=== PATIENT | female | born 1985 | race Caucasian/White ===

== ENCOUNTER 2016-07-14 15:18 | Observation (INO) | payer MEDICAID ==
[2016-07-14 16:00] VITALS: PULSE 99
[2016-07-14] MEDS ORDERED: Sodium Chloride 0.9% 1000 ML 1,000 ML IV STA (16:43)
[2016-07-14] MEDS ORDERED: Lactated Ringers 1,000 ML IV SCH (17:00)
[2016-07-14 17:31] LABS: BASOPHIL % 0.3 % (0.0-0.4); Eosinophil % 2.1 % (0.00-5.0); Granulocytes % 68.8 % (36.0-66.0); Lymphocytes % 20.7 % (24.0-44.0); Mean Cell Volume 96.8 fl (78-100); Mean Platelet Volume 11.7 fl (6-9.5); Monocytes % 8.1 % (0.0-12.0); Platelet Count 252 K/mm3 (150-450); Red Blood Count 3.39 M/mm3 (4.1-5.4); Red Cell Distribution Width 13.1 % (11.5-14.0); White Blood Count 6.6 K/mm3 (4.0-10.5)
[2016-07-14 17:53] LABS: Mean Corpuscular Hemoglobin 30.9 pg (26-32)
[2016-07-14 18:14] LABS: ALBUMIN 2.1 g/dL (3.4-5.0); ALKALINE PHOSPHATASE 135 U/L (46-116); ANION GAP 10.4 MEQ/L (5-15); BILIRUBIN,TOTAL 0.3 mg/dL (0.2-1.0); BLOOD UREA NITROGEN 4 mg/dL (9-20); CHLORIDE 107 mEq/L (98-107); Carbon Dioxide 24.2 mEq/L (21-32); Glucose 95 MG/DL (70-110); Potassium 3.8 mEq/L (3.5-5.1); SGOT/AST 34 U/L (15-37); SGPT/ALT 37 U/L (12-78); SODIUM 138 mEq/L (136-145); Total Protein 5.8 gm/dL (6.4-8.2)
[2016-07-14] MEDS ORDERED: Norco 10/325 MG Tablet PO PRN (18:22)
[2016-07-14 19:20] LABS: COMPLETE URINE MICROSCOPIC? NO; Collection Type CLEAN CATCH
[2016-07-14 19:52] VITALS: BP 138/78; O2SAT 99
--- NOTE | 2016-07-15 08:34 | XRAY ---
Indication: Fall. High risk . 2-dimensional OB ultrasound performed. Comparison: January 10, 2016 Again there is a single viable intrauterine . Normal four-chamber heart with heart rate 131 bpm. Normal three-vessel cord and cord insertion. Visualized stomach, kidneys, and bladder are unremarkable. Placenta is anterior without abruption/previa. Cervical length measures 3.5 cm. BPD measures 8.85 cm corresponding to 35 weeks 5 days. HC measures 32.63 cm corresponding to 37 weeks 0 days. AC measures 33.67 cm corresponding to 37 weeks 4 days. FL measures 7.03 cm corresponding to 36 weeks 0 days. KALIN is 15.2 cm. Impression: Again single viable intrauterine with mean gestational age 36 weeks 4 days. There has been progression in the with the fetus measuring 8 days smaller since the previous exam. No acute findings. Comment: Preliminary report was given.
== END 2016-07-14 19:50 | disposition home or self-care (01) ==
LOC: OB 15:18
PROVIDERS: ADMIT Family Medicine; ATTEND Family Medicine
DX: O21.2 Late vomiting of pregnancy (principal); W01.198A Fall on same level from slipping, tripping and stumbling with subsequent striking against other object, initial encounter; M54.5 Low back pain; O24.419 Gestational diabetes mellitus in pregnancy, unspecified control; Z3A.38 38 weeks gestation of pregnancy; E86.0 Dehydration; B19.20 Unspecified viral hepatitis C without hepatic coma
CPT/HCPCS: 36415; 76805; 80053; 80307; 81002; 85025; G0378

== ENCOUNTER 2016-07-19 16:36 | Observation (INO) | payer MEDICAID ==
[2016-07-19 16:44] VITALS: BP 113/59; PULSE 94
[2016-07-19] MEDS ORDERED: TYLENOL 325 MG PO PRN (18:03)
[2016-07-19] MEDS ORDERED: TYLENOL 325 MG ONE (18:05)
[2016-07-19 18:08] LABS: COMPLETE URINE MICROSCOPIC? NO; Collection Type CLEAN CATCH
== END 2016-07-19 19:35 | disposition home or self-care (01) ==
LOC: UNDOADMOB 16:36 → OB 16:36 → UNDODISOB 19:35
PROVIDERS: ADMIT Family Medicine; ATTEND Family Medicine
DX: Z34.83 Encounter for supervision of other normal pregnancy, third trimester (principal)
CPT/HCPCS: 59025; 80307; 81002; G0378

== ENCOUNTER 2018-02-27 21:22 | Emergency (ER) | payer OTHER ==
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
[2018-02-27 22:40] VITALS: BP 134/88; PULSE 88; O2SAT 100
[2018-02-27] MEDS ORDERED: KEFLEX 500 MG PO ONE (22:45)
[2018-02-27] MEDS ORDERED: KEFLEX 500 MG ONE (22:51)
--- NOTE | 2018-02-28 08:37 | XRAY ---
Indication: Foreign body needle. Comparison: None 2 views of the left elbow demonstrates 7 mm metallic wire/foreign body in the anterior subcutaneous soft tissues. No other bony, articular, or soft tissue abnormalities.
== END 2018-02-27 22:58 | disposition home or self-care (01) ==
LOC: ED 21:22
DX: M79.5 Residual foreign body in soft tissue (principal)
CPT/HCPCS: 73070; 99283; A9270-GY

== ENCOUNTER 2018-03-06 08:31 | Emergency (ER) | payer OTHER ==
[2018-03-06] MEDS ORDERED: TYLENOL 325 MG PO ONE (08:45)
[2018-03-06 08:52] VITALS: BP 119/70; PULSE 92; O2SAT 100
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
[2018-03-06] MEDS ORDERED: TYLENOL 325 MG ONE (08:56)
[2018-03-06 09:15] LABS: BASOPHIL % 0.4 % (0.0-0.4); Basophil (Absolute #) 0.02 (0-0.4); Eosinophil % 5.3 % (0.00-5.0); Eosinophil (Absolute #) 0.27 (0-0.5); Granulocyte Absolute (ANC) 2.93 (1.4-6.9); Granulocytes % 57.8 % (36.0-66.0); Hematocrit 41.8 % (35-47); Hemoglobin 14.3 gm/dl (12.0-16.0); Lymphocyte (Absolute #) 1.38 (1.0-4.6); Lymphocytes % 27.2 % (24.0-44.0); Mean Cell Volume 96.5 fl (78-100); Mean Corpuscular Hgb Concent. 34.2 g/dl (32-36); Mean Platelet Volume 10.7 fl (6-9.5); Monocyte (Absolute #) 0.47 (0.0-1.3); Monocytes % 9.3 % (0.0-12.0); Platelet Count 241 K/mm3 (150-450); Red Blood Count 4.33 M/mm3 (4.1-5.4); Red Cell Distribution Width 12.8 % (11.5-14.0); White Blood Count 5.1 K/mm3 (4.0-10.5)
[2018-03-06 09:22] LABS: Appearance CLEAR (CLEAR); Bilirubin NEGATIVE (NEGATIVE); Glucose NEGATIVE (NEGATIVE); Ketones NEGATIVE (NEGATIVE); Leukocyte Esterase TRACE (NEGATIVE); Nitrite NEGATIVE (NEGATIVE); Protein,Urine Dip NEGATIVE (Negative); Specific Gravity 1.015 (1.005-1.025); Urobilinogen NORMAL mg/dL (0-1)
[2018-03-06 09:23] LABS: Blood NEGATIVE Ery/ul (0-5)
[2018-03-06 09:34] LABS: ALKALINE PHOSPHATASE 43 U/L (38-126); AMYLASE 89 U/L (30-110); ANION GAP 10.8 MEQ/L (5-15); BLOOD UREA NITROGEN 16 mg/dL (7-17); CHLORIDE 108 mmol/L (98-107); Calcium 9.3 mg/dL (8.4-10.2); Carbon Dioxide 25 mmol/L (22-30); Creatinine 1 0.55 mg/dL (0.52-1.04); Glucose 93 mg/dL (74-106); LIPASE 229 U/L (23-300); Potassium 4.3 mmol/L (3.5-5.1); SGOT/AST 161 U/L (14-36); SGPT/ALT 237 U/L (0-35); SODIUM 139 mmol/L (137-145); Total Protein 7.2 g/dL (6.3-8.2)
[2018-03-06 09:53] LABS: Amphetamine,Urine NEGATIVE (NEGATIVE); Barbiturate,Urine NEGATIVE (NEGATIVE); Benzodiazepine,Urine NEGATIVE (NEGATIVE); Cocaine,Urine NEGATIVE (NEGATIVE); Methadone,Urine NEGATIVE (NEGATIVE); Opiate,Urine NEGATIVE (NEGATIVE); PCP,Urine NEGATIVE (NEGATIVE); THC,Urine NEGATIVE (NEGATIVE)
[2018-03-06 09:56] LABS: Epithelial Cells RARE /HPF (FEW); WBC 0-2 /HPF (0-5)
== END 2018-03-06 10:28 | disposition home or self-care (01) ==
LOC: ED 08:31
DX: R10.9 Unspecified abdominal pain (principal); S00.03XA Contusion of scalp, initial encounter; R51 Headache; M54.9 Dorsalgia, unspecified; Y09 Assault by unspecified means
CPT/HCPCS: 36415; 80053; 80307; 81000; 82150; 83690; 84702; 84703; 85025; 99283; A9270-GY

== ENCOUNTER 2018-03-17 08:37 | Day surgery (SDC) | payer OTHER ==
--- NOTE | 2018-03-17 07:52 | HP ---
DATE OF SURGERY: 03/17/2018 ADMISSION DIAGNOSIS: Foreign body left arm. ANTICIPATED PROCEDURE: Excision. HISTORY OF PRESENT ILLNESS: The patient has a broken off needle in the arm. PAST MEDICAL HISTORY: ALLERGIES: NONE. MEDICATIONS: Keflex, Metformin. PAST SURGICAL HISTORY: section x2. Back surgery. SOCIAL HISTORY: Negative. FAMILY HISTORY: Negative. REVIEW OF SYSTEMS: Diabetes. PHYSICAL EXAMINATION: VITAL SIGNS: Normal. CHEST: Clear. COR: Regular. IMPRESSION: Needle left arm. PLAN: Excision.
[~2018-03-17 08:37] MED LIST: Lactated Ringers 1,000 ML IV ONE; XYLOCAINE 1% HCL 20 ML MDV ONE
[2018-03-17] MEDS ORDERED: DIPRIVAN 200 MG/20 ML IV ONE (08:38)
[2018-03-17] MEDS ORDERED: SUBLIMAZE 100 MCG/2 ML IV ONE (08:38)
[2018-03-17] MEDS ORDERED: Versed 2 MG/2 ML Injection IV ONE (08:38)
[2018-03-17 09:08] LABS: Amphetamine,Urine NEGATIVE (NEGATIVE); Barbiturate,Urine NEGATIVE (NEGATIVE); Benzodiazepine,Urine NEGATIVE (NEGATIVE); Cocaine,Urine NEGATIVE (NEGATIVE); Methadone,Urine NEGATIVE (NEGATIVE); Opiate,Urine NEGATIVE (NEGATIVE); PCP,Urine NEGATIVE (NEGATIVE); THC,Urine NEGATIVE (NEGATIVE)
[2018-03-17] MEDS: Lactated Ringers 1,000 ML IV SCH (09:21)
[2018-03-17] MEDS ORDERED: KEFZOL 1 GM ONE (10:59)
--- NOTE | 2018-03-17 12:11 | XRAY ---
Indication: Foreign body removal. Intraoperative fluoroscopy was provided for 34 seconds. Single digital spot image submitted for interpretation demonstrates wire material overlying the medial epicondyle presumed external. No other bony, articular, or soft tissue abnormalities. Correlate with intraoperative findings/report.
--- NOTE | 2018-03-17 12:11 | XRAY ---
34 seconds fluoroscopy time in surgery for foreign body removal.
[2018-03-17 12:24] VITALS: O2SAT 93
[2018-03-17 12:27] VITALS: BP 145/94; PULSE 88
--- NOTE | 2018-03-18 15:47 | OP ---
SURGERY DATE: 03/17/18 SURGERY TIME: 1050 PREOPERATIVE DIAGNOSIS: 1. PROBABLE FOREIGN BODY, NEEDLE, ELBOW. POSTOPERATIVE DIAGNOSIS: 1. NEGATIVE EXPLORATION WITH SOME GRANULATION TISSUE. PROCEDURE: 1. Exploration left elbow with removal of granulation tissue and closure. SURGEON: Finn Hernandez M.D. ANESTHESIA: General. COMPLICATIONS: None. CONDITION: Stable. INDICATION: Patient requiring exploration of poorly healing area of the elbow. She thinks a needle is present. OPERATIVE PROCEDURE: Taken to surgery. Prior to making excision, it was fluoro'd and nothing absolute was seen. It was then opened. There was some granulation tissue. This was removed. Again, it was refluoro'd, nothing suggested. An intraoperative needle was showing up nicely on the fluoro image. Patient tolerated the procedure satisfactory.
== END 2018-03-17 12:20 | disposition home or self-care (01) ==
LOC: SDC 08:37
PROVIDERS: ATTEND Surgery
PROC: 0JJV0ZZ Inspection of Upper Extremity Subcutaneous Tissue and Fascia, Open Approach (ICD-10-PCS; principal; 2018-03-17)
DX: L92.3 Foreign body granuloma of the skin and subcutaneous tissue (principal); E11.9 Type 2 diabetes mellitus without complications; Z79.4 Long term (current) use of insulin
CPT/HCPCS: 73090; 76000; 80307; 82962; 84703; 94250; J0690; J2250; J2704; J3010

== ENCOUNTER 2018-03-23 01:47 | Emergency (ER) | payer OTHER ==
--- NOTE | 2018-03-23 02:26 | ERPHSYRPT ---
- History of Present Illness Source: patient, EMS Exam Limitations: no limitations Patient Subjective Stated Complaint: chest pain on right side Triage Nursing Assessment: Pt c/o of right sided chest pain that she feels is related to her emotional state at this time, very tearful, Meth 2 days ago, drank whiskey tonite, Vitals wnl, pulses normal, hx of NC, miscarriage this past month Timing/Duration: today Severity of Symptoms-Max: moderate Severity of Symptoms-Current: moderate Context related to: significant other, living circumstances Suicidal thoughts: other (thoughts of overdosing) Associated Symptoms: depressed, suicidal ideation Previous symptoms: same symptoms as today Hx Tetanus, Diphtheria Vaccination/Date Given: Yes Hx Influenza Vaccination/Date Given: No Hx Pneumococcal Vaccination/Date Given: No <JAMI CHO - Last Filed: 03/23/18 07:07> <SHAZIA DEAN - Last Filed: 03/23/18 11:39> - History of Present Illness Time Seen by Provider: 03/23/18 02:15 Physician History: 32 y/o white female presents via ems with severe depression for a week. pt states she will harm herself if she is alone any longer so she called ems. she uses methamphetamines often. she was drinking whiskey this am. she was brought in by ems. pt also c/o left side cp. no n/v/d. pt was but recently miscarried. (JAMI CHO) Allergies/Adverse Reactions: amoxicillin trihydrate [From Augmentin] Allergy (Intermediate, Verified 02:07) Vomiting cefuroxime Allergy (Intermediate, Verified 03/23/18 02:07) Vomiting Latex, Natural Rubber Allergy (Intermediate, Verified 03/23/18 02:07) Hives penicillin G Allergy (Intermediate, Verified 03/23/18 02:07) CHILDHOOD Penicillins Allergy (Intermediate, Verified 03/23/18 02:07) Rash potassium clavulanate [From Augmentin] Allergy (Intermediate, Verified 03/23/18 02:07) amoxicillin Allergy (Mild, Verified 03/23/18 02:07) Rash clindamycin Allergy (Mild, Verified 03/23/18 02:07) Vomiting contrast dye Allergy (Severe, Uncoded 07/14/16 15:40) Shortness of Breath vomiting Home Medications: Aspirin EC 81 mg [Ecotrin 81 mg] 81 mg PO DAILY 03/11/18 [History] Metformin HCl 500 mg [Glucophage 500 MG] 500 mg PO BIDWM 03/11/18 [History ] Multivitamin [Daily Multiple Vitamin] 1 each PO DAILY 03/11/18 [History] [address] Fatty Acids/Fish Oil [Fish Oil 1,000 mg Capsule] 1,000 mg PO DAILY 03/11/18 [History] Vitamin E 400 Units [Vitamin E 400 UNIT SOFTGEL] 400 unit PO DAILY [History] - Past Medical History Pertinent Past Medical History: Yes Neurological History: No Pertinent History ENT History: No Pertinent History Cardiac History: Myocardial Infarction (NC) Respiratory History: Asthma Endocrine Medical History: Diabetes Type II Musculoskeletal History: No Pertinent History GI Medical History: No Pertinent History History: No Pertinent History Psycho-Social History: Anxiety, Bipolar, Depression, Other Female Reproductive Disorders: Endometriosis Other Medical History: elevated liver enzymes,. pt states agoraphobia and ptsd - Past Surgical History Past Surgical History: Yes Neuro Surgical History: No Pertinent History Cardiac: Cardiac Catheterization Respiratory: No Pertinent History Gastrointestinal: No Pertinent History Genitourinary: No Pertinent History Musculoskeletal: Orthopedic Surgery Female Surgical History: Dilation & Curettage, Section Other Surgical History: BACK surgery-implanted rods. d and c - Social History Smoking Status: Current every day smoker How long have you smoked: 27 years Exposure to second hand smoke: Yes Drug Use: marijuana, methamphetamines Patient Lives Alone: Yes Significant Family History: no pertinent family hx - Female History Hx Last Menstrual Period: Hx Now: No <JAMI CHO - Last Filed: 03/23/18 07:07> - Review of Systems Constitutional: No Symptoms Eyes: No Symptoms Ears, Nose, & Throat: No Symptoms Respiratory: No Symptoms, No Cough, No Dyspnea, No Stridor, No Wheezing Cardiac: Chest Pain, No Palpitations, No Syncope Abdominal/Gastrointestinal: No Symptoms, No Abdominal Pain, No Nausea, No Vomiting, No Diarrhea Genitourinary Symptoms: No Symptoms, No Dysuria, No Frequency, No Hematuria Musculoskeletal: No Symptoms Skin: No Symptoms Neurological: No Symptoms, No Dizziness, No Lethargy, No Paralysis, No Sensory Changes, No Speech Changes, No Tics, No Tremors, No Vertigo Psychological: No Symptoms, Alcohol Abuse, Drug Abuse, Depression, Suicidal Ideations, No Homicidal Ideations, No Emotional Lability Endocrine: No Symptoms Hematologic/Lymphatic: No Symptoms Immunological/Allergic: No Symptoms All Other Systems: Reviewed and Negative <JAMI CHO - Last Filed: 03/23/18 07:07> - Physical Exam General Appearance: mild distress, alert, anxiety Eyes, Ears, Nose, Throat Exam: normal ENT inspection, TMs normal, moist mucous membranes Neck Exam: normal inspection, non-tender, full range of motion, No supple Respiratory Exam: normal breath sounds, chest tenderness, lungs clear, airway intact, No respiratory distress, No diminished breath sounds, No accessory muscle use, No rhonchi, No wheezing, No stridor Cardiovascular Exam: regular rate/rhythm, normal heart sounds, normal peripheral pulses Gastrointestinal/Abdominal Exam: soft, normal bowel sounds, mass, No tenderness , No guarding, No rebound Extremities Exam: normal inspection, normal range of motion, evidence of injury Current Suicidality: other (afraid if she is alone she will overdose) Neurological Exam: alert, normal mood/affect, calm, 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 Appearance: disheveled, impaired insight, impaired recent memory Behavior/Eye Contact/Speech: alert & cooperative, cooperative, avoids eye contact Thoughts/Hallucinations: no apparent hallucination, No auditory hallucinations, No delusions, No visual hallucinations Skin Exam: normal color, warm, dry SpO2 Interpretation: normal SpO2: 98 Oxygen Delivery: Room Air <JAMI CHO - Last Filed: 03/23/18 07:07> <SHAZIA DEAN - Last Filed: 03/23/18 11:39> - Nursing Vital Signs Nursing Vital Signs: Initial Vital Signs Pulse Rate 100 H 03/23/18 01:49 Respiratory Rate 15 03/23/18 01:49 Blood Pressure 133/90 03/23/18 01:49 O2 Sat by Pulse Oximetry 98 03/23/18 01:49 Pain Scale Pain Intensity 0 - Course Nursing assessment & vital signs reviewed: Yes EKG Interpreted by Me: RATE (91), Sinus Rhythm, NORMAL AXIS, NORMAL INTERVALS, NORMAL QRS, NORMAL ST-T, Other (no change from ekg on 02/10/16) <JAMI CHO - Last Filed: 03/23/18 07:07> Ordered Tests: Active Orders 24 hr Category Date Time Status EKG-ER Only STAT Care 03/23/18 02:32 Active Psychiatric Consult STAT Cons 03/23/18 02:32 Active Regular Diet Diet 03/23/18 Lunch Active ACETAMINOPHEN Stat Lab 03/23/18 02:50 Completed CBC W DIFF Stat Lab 03/23/18 02:50 Completed CMP Stat Lab 03/23/18 02:50 Completed ETHYL ALCOHOL Stat Lab 03/23/18 02:50 Completed HCG,QUALITATIVE URINE Stat Lab 03/23/18 03:00 Completed LITHIUM Stat Lab 03/23/18 02:50 Completed Manual Differential NC Stat Lab 03/23/18 02:50 Completed SALICYLATE Stat Lab 03/23/18 02:50 Completed UA W/RFX UR CULTURE Stat Lab 03/23/18 03:00 Completed Urine Triage Profile Stat Lab 03/23/18 03:00 Completed Lab/Rad Data: Laboratory Result Diagrams 03/23/18 02:50 03/23/18 02:50 Laboratory Results 03/23/18 03/23/18 03/23/18 Range/Units 03:00 03:00 03:00 WBC (4.0-10.5) K/mm3 RBC (4.1-5.4) M/mm3 Hgb (12.0-16.0) gm/dl Hct (35-47) % MCV (78-100) fl MCH (26-32) pg MCHC (32-36) g/dl RDW (11.5-14.0) % Plt Count (150-450) K/mm3 MPV (6-9.5) fl Absolute Granulocytes (1.4-6.9) Segmented Neutrophils (36.0-66.0) % Lymphocytes (Manual) (24-44) % Monocytes (Manual) (0.0-12.0) % Eosinophils (Manual) (0.00-3.0) % Platelet Estimate (NORMAL) RBC Morphology Sodium (137-145) mmol/L Potassium (3.5-5.1) mmol/L Chloride (98-107) mmol/L Carbon Dioxide (22-30) mmol/L Anion Gap (5-15) MEQ/L BUN (7-17) mg/dL Creatinine (0.52-1.04) mg/dL Estimated GFR ML/MIN Glucose (74-106) mg/dL Calcium (8.4-10.2) mg/dL Total Bilirubin (0.2-1.3) mg/dL AST (14-36) U/L ALT (0-35) U/L Alkaline Phosphatase (38-126) U/L Serum Total Protein (6.3-8.2) g/dL Albumin (3.5-5.0) g/dL Ur Collection Type CLEAN CATCH Urine Color STRAW (YELLOW) Urine Appearance CLEAR (CLEAR) Urine pH 5.0 (5-6) Ur Specific [place] 1.025 (1.005-1.025) Urine Protein NEGATIVE (Negative) Urine Ketones NEGATIVE (NEGATIVE) Urine Blood NEGATIVE (0-5) Blu/ul Urine Nitrite NEGATIVE (NEGATIVE) Urine Bilirubin NEGATIVE (NEGATIVE) Urine Urobilinogen NORMAL (0-1) mg/dL Ur Leukocyte Esterase NEGATIVE (NEGATIVE) Urine Culture Reflexed NO (NO) Urine Glucose NEGATIVE (NEGATIVE) mg/dL Urine HCG, Qual NEGATIVE (Negative) Salicylates (2-20) mg/dL Urine Opiates Level NEGATIVE (NEGATIVE) Ur Methadone NEGATIVE (NEGATIVE) Acetaminophen (10-30) ug/ml Urine Barbiturates NEGATIVE (NEGATIVE) Ur Phencyclidine (PCP) NEGATIVE (NEGATIVE) Urine Amphetamine POSITIVE (NEGATIVE) U Benzodiazepine Level NEGATIVE (NEGATIVE) Antler (0.60-1.20) mmol/L Urine Cocaine NEGATIVE (NEGATIVE) Urine Marijuana (THC) NEGATIVE (NEGATIVE) Ethyl Alcohol (0-10) mg/dL 03/23/18 03/23/18 03/23/18 Range/Units 02:50 02:50 02:50 WBC 6.7 (4.0-10.5) K/mm3 RBC 4.50 (4.1-5.4) M/mm3 Hgb 15.0 (12.0-16.0) gm/dl Hct 43.1 (35-47) % MCV 95.8 (78-100) fl MCH 33.3 H (26-32) pg MCHC 34.8 (32-36) g/dl RDW 12.4 (11.5-14.0) % Plt Count 286 (150-450) K/mm3 MPV 10.6 H (6-9.5) fl Absolute Granulocytes 4.13 (1.4-6.9) Segmented Neutrophils 68 H (36.0-66.0) % Lymphocytes (Manual) 25 (24-44) % Monocytes (Manual) 5 (0.0-12.0) % Eosinophils (Manual) 2 (0.00-3.0) % Platelet Estimate NORMAL (NORMAL) RBC Morphology NORMAL Sodium 143 (137-145) mmol/L Potassium 3.9 (3.5-5.1) mmol/L Chloride 109 H (98-107) mmol/L Carbon Dioxide 25 (22-30) mmol/L Anion Gap 12.7 (5-15) MEQ/L BUN 18 H (7-17) mg/dL Creatinine 0.63 (0.52-1.04) mg/dL Estimated GFR > 60.0 ML/MIN Glucose 98 (74-106) mg/dL Calcium 9.6 (8.4-10.2) mg/dL Total Bilirubin 0.70 (0.2-1.3) mg/dL AST 95 H (14-36) U/L ALT 138 H (0-35) U/L Alkaline Phosphatase 52 (38-126) U/L Serum Total Protein 7.7 (6.3-8.2) g/dL Albumin 4.3 (3.5-5.0) g/dL Ur Collection Type Urine Color (YELLOW) Urine Appearance (CLEAR) Urine pH (5-6) Ur Specific [place] (1.005-1.025) Urine Protein (Negative) Urine Ketones (NEGATIVE) Urine Blood (0-5) Blu/ul Urine Nitrite (NEGATIVE) Urine Bilirubin (NEGATIVE) Urine Urobilinogen (0-1) mg/dL Ur Leukocyte Esterase (NEGATIVE) Urine Culture Reflexed (NO) Urine Glucose (NEGATIVE) mg/dL Urine HCG, Qual (Negative) Salicylates 2.2 (2-20) mg/dL Urine Opiates Level (NEGATIVE) Ur Methadone (NEGATIVE) Acetaminophen < 10 L (10-30) ug/ml Urine Barbiturates (NEGATIVE) Ur Phencyclidine (PCP) (NEGATIVE) Urine Amphetamine (NEGATIVE) U Benzodiazepine Level (NEGATIVE) Antler < 0.2 L (0.60-1.20) mmol/L Urine Cocaine (NEGATIVE) Urine Marijuana (THC) (NEGATIVE) Ethyl Alcohol < 10 (0-10) mg/dL <JAMI CHO - Last Filed: 03/23/18 07:07> - Progress Progress: improved (with time), re-examined <SHAZIA DEAN - Last Filed: 03/23/18 11:39> - Progress Progress Note: 03/23/18 07:07 i signed out and transferred care to dr. dean. (JAMI CHO) 03/23/18 10:48 I assumed her care from Dr Cho; awaiting telepsyche evaluation; reexamined patient and reevaluated her; slightly anxious; hasn't gotten her meds filled; not suicidal or homicidal ; was depressed and didn't want to be alone; Sister called and comfortable letting her stay over night; will go by [facility] in and get rx for her Zoloft from her counselor there today; has an appt to follow up with him next week; will interview sister when arrives and confirm and reevaluate the patient 03/23/18 11:01 Discussed "No-suicide" pact with the patient and she concurs; 03/23/18 11:36 reviewed telepsyche consult; patient refused to sign for admission; discussed disposition with patient and family; they are comfortable taking patient and staying with her; she will go to [facility] to get meds rx and followup appt; patient signed a NO SUICIDE contract and is not suicidal or homicidal at this time; will discharge to care of her [id number]. (SHAZIA DEAN) <JAMI CHO - Last Filed: 03/23/18 07:07> - Departure Time of Disposition: 11:38 Departure Disposition: Home Critical Care Time: No <SHAZIA DEAN - Last Filed: 03/23/18 11:39> - Departure Clinical Impression: Depression, acute Condition: Stable Referrals: PAZ MARIA [Primary Care Provider] - Instructions: Atypical Chest Pain, Depression Additional Instructions: rest; stay with family; follow up [facility] for meds adn outpatient appt; Follow-up with family doctor as directed. Call for appointment. Return if any problems. If you smoke please stop. Call or follow up with your family doctor for assistance if you need it to stop. Please wear your seatbelt when driving. Have a nice day. Thank you for allowing us to participate in your care today. :o) Dr Larry Dean
[2018-03-23 02:56] LABS: Granulocyte Absolute (ANC) 4.13 (1.4-6.9); Hematocrit 43.1 % (35-47); Mean Cell Volume 95.8 fl (78-100); Mean Corpuscular Hemoglobin 33.3 pg (26-32); Mean Corpuscular Hgb Concent. 34.8 g/dl (32-36); Mean Platelet Volume 10.6 fl (6-9.5); Platelet Count 286 K/mm3 (150-450); Red Cell Distribution Width 12.4 % (11.5-14.0); White Blood Count 6.7 K/mm3 (4.0-10.5)
[2018-03-23 03:42] LABS: ALBUMIN 4.3 g/dL (3.5-5.0); ALKALINE PHOSPHATASE 52 U/L (38-126); ANION GAP 12.7 MEQ/L (5-15); BLOOD UREA NITROGEN 18 mg/dL (7-17); CHLORIDE 109 mmol/L (98-107); Calcium 9.6 mg/dL (8.4-10.2); Carbon Dioxide 25 mmol/L (22-30); Creatinine 1 0.63 mg/dL (0.52-1.04); Glucose 98 mg/dL (74-106); Potassium 3.9 mmol/L (3.5-5.1); SALICYLATE 2.2 mg/dL (2-20); SGOT/AST 95 U/L (14-36); SGPT/ALT 138 U/L (0-35); SODIUM 143 mmol/L (137-145); Total Protein 7.7 g/dL (6.3-8.2)
[2018-03-23 03:43] LABS: Appearance CLEAR (CLEAR); Bilirubin NEGATIVE (NEGATIVE); Blood NEGATIVE Ery/ul (0-5); Glucose NEGATIVE (NEGATIVE); Ketones NEGATIVE (NEGATIVE); Leukocyte Esterase NEGATIVE (NEGATIVE); Nitrite NEGATIVE (NEGATIVE); Protein,Urine Dip NEGATIVE (Negative); Specific Gravity 1.025 (1.005-1.025); Urobilinogen NORMAL mg/dL (0-1)
[2018-03-23 03:51] LABS: ACETAMINOPHEN < 10 ug/ml (10-30); ETHYL ALCOHOL < 10 mg/dL (0-10)
[2018-03-23 03:57] LABS: Barbiturate,Urine NEGATIVE (NEGATIVE); Benzodiazepine,Urine NEGATIVE (NEGATIVE); Cocaine,Urine NEGATIVE (NEGATIVE); Methadone,Urine NEGATIVE (NEGATIVE); Opiate,Urine NEGATIVE (NEGATIVE); PCP,Urine NEGATIVE (NEGATIVE); THC,Urine NEGATIVE (NEGATIVE)
[2018-03-23 04:22] LABS: Amphetamine,Urine POSITIVE (NEGATIVE)
[2018-03-23 05:28] LABS: Eosinophil 2 % (0.00-3.0); Lymphocytes 25 % (24-44); Monocyte 5 % (0.0-12.0); Neutrophils 68 % (36.0-66.0); Platelet Estimate NORMAL (NORMAL); Total Cells Counted 100
[2018-03-23 11:47] VITALS: BP 113/93; PULSE 85; O2SAT 94
== END 2018-03-23 11:59 | disposition home or self-care (01) ==
LOC: ED 01:47
DX: F32.9 Major depressive disorder, single episode, unspecified (principal); Z79.899 Other long term (current) drug therapy; E11.9 Type 2 diabetes mellitus without complications; Z79.84 Long term (current) use of oral hypoglycemic drugs
CPT/HCPCS: 36415; 80053; 80178; 80307; 81002; 84703; 85025; 90791; 93005; 99284; G0481; Q3014; G0480

== ENCOUNTER 2018-04-28 09:05 | Emergency (ER) | payer OTHER ==
--- NOTE | 2018-04-28 09:27 | ERPHSYRPT ---
- History of Present Illness Time Seen by Provider: 04/28/18 09:26 Source: patient, family Exam Limitations: no limitations Physician History: 32 y/o white female 24 week presents with suicidal thoughts and intention. pt is a polysubstance abuser of illicit drugs. pt states she injected herself with an unknown drug this am and was crawling on the floor afterwards. she wants help with her suicidal thoughts and getting off drugs. she denies headache, denies cp, denies abd pain, denies soa. pt states she does not want to go to [facility]. but will go where ever there is an appropriate bed available Timing/Duration: today Severity of Symptoms-Max: none Severity of Symptoms-Current: none Context related to: other (drug addiction) Suicidal thoughts: attempt, ingestion Associated Symptoms: depressed, frustrated Previous symptoms: same symptoms as today Allergies/Adverse Reactions: amoxicillin trihydrate [From Augmentin] Allergy (Intermediate, Verified 02:07) Vomiting cefuroxime Allergy (Intermediate, Verified 03/23/18 02:07) Vomiting Latex, Natural Rubber Allergy (Intermediate, Verified 03/23/18 02:07) Hives penicillin G Allergy (Intermediate, Verified 03/23/18 02:07) CHILDHOOD Penicillins Allergy (Intermediate, Verified 03/23/18 02:07) Rash potassium clavulanate [From Augmentin] Allergy (Intermediate, Verified 03/23/18 02:07) amoxicillin Allergy (Mild, Verified 03/23/18 02:07) Rash clindamycin Allergy (Mild, Verified 03/23/18 02:07) Vomiting contrast dye Allergy (Severe, Uncoded 07/14/16 15:40) Shortness of Breath vomiting Home Medications: Aspirin EC 81 mg [Ecotrin 81 mg] 81 mg PO DAILY 03/11/18 [History] Metformin HCl 500 mg [Glucophage 500 MG] 500 mg PO BIDWM 03/11/18 [History ] Multivitamin [Daily Multiple Vitamin] 1 each PO DAILY 03/11/18 [History] [place]-3 Fatty Acids/Fish Oil [Fish Oil 1,000 mg Capsule] 1,000 mg PO DAILY 03/11/18 [History] Vitamin E 400 Units [Vitamin E 400 UNIT SOFTGEL] 400 unit PO DAILY [History] Hx Tetanus, Diphtheria Vaccination/Date Given: Yes Hx Influenza Vaccination/Date Given: No Hx Pneumococcal Vaccination/Date Given: No - Past Medical History Pertinent Past Medical History: Yes Neurological History: No Pertinent History ENT History: No Pertinent History Cardiac History: Myocardial Infarction ([place]) Respiratory History: Asthma Endocrine Medical History: Diabetes Type II Musculoskeletal History: No Pertinent History GI Medical History: No Pertinent History History: No Pertinent History Psycho-Social History: Anxiety, Bipolar, Depression, Other Female Reproductive Disorders: Endometriosis Other Medical History: elevated liver enzymes,. pt states agoraphobia and ptsd - Past Surgical History Past Surgical History: Yes Neuro Surgical History: No Pertinent History Cardiac: Cardiac Catheterization Respiratory: No Pertinent History Gastrointestinal: No Pertinent History Genitourinary: No Pertinent History Musculoskeletal: Orthopedic Surgery Female Surgical History: Dilation & Curettage, Section Other Surgical History: BACK surgery-implanted rods. d and c - Social History Smoking Status: Current every day smoker How long have you smoked: 27 years Exposure to second hand smoke: Yes Drug Use: marijuana, methamphetamines Patient Lives Alone: Yes Significant Family History: no pertinent family hx - Review of Systems Constitutional: No Symptoms, No Fever Eyes: No Symptoms Ears, Nose, & Throat: No Symptoms Respiratory: No Symptoms, No Cough, No Dyspnea, No Stridor, No Wheezing Cardiac: No Symptoms, No Chest Pain, No Palpitations, No Syncope Abdominal/Gastrointestinal: No Symptoms, No Abdominal Pain, No Nausea, No Vomiting, No Diarrhea Genitourinary Symptoms: No Symptoms, No Dysuria, No Frequency, No Hematuria Musculoskeletal: No Symptoms Skin: No Symptoms Neurological: No Symptoms Psychological: Drug Abuse, Anxiety, Depression, Suicidal Ideations, Emotional Lability, No Homicidal Ideations Endocrine: No Symptoms, No Polyuria, No Polydipsia Hematologic/Lymphatic: No Symptoms, No Anemia Immunological/Allergic: No Symptoms All Other Systems: Reviewed and Negative - Nursing Vital Signs Nursing Vital Signs: Initial Vital Signs Temperature 98 F 04/28/18 09:22 Pulse Rate 116 H 04/28/18 09:22 Respiratory Rate 20 04/28/18 09:22 Blood Pressure 121/82 04/28/18 09:22 O2 Sat by Pulse Oximetry 98 04/28/18 09:22 Pain Scale Pain Intensity 0 - Physical Exam General Appearance: mild distress, alert, anxiety Eyes, Ears, Nose, Throat Exam: normal ENT inspection, TMs normal, moist mucous membranes Neck Exam: normal inspection, non-tender, supple, full range of motion Respiratory Exam: normal breath sounds, lungs clear, airway intact, No chest tenderness, No respiratory distress, No accessory muscle use, No rhonchi, No wheezing, No stridor Cardiovascular Exam: regular rate/rhythm, normal heart sounds, normal peripheral pulses Gastrointestinal/Abdominal Exam: soft, normal bowel sounds, No tenderness, No guarding, No rebound Extremities Exam: normal inspection, normal range of motion, evidence of injury Neurological Exam: alert, nutritionist public health II-XII nml as tested, oriented x 3, anxious, depressed affect Appearance: disheveled, impaired insight, impaired recent memory Behavior/Eye Contact/Speech: avoids eye contact, intoxicated appearance Thoughts/Hallucinations: no apparent hallucination, obsessive, paranoid Skin Exam: normal color, warm, dry SpO2 Interpretation: normal Oxygen Delivery: Room Air - Course Nursing assessment & vital signs reviewed: Yes EKG Interpreted by Me: RATE ([id number]), Right [place] Deviation, Non-specific ST Changes (no acute ischemic changes) Ordered Tests: Active Orders 24 hr Category Date Time Status Clean Catch Urine Specimen STAT Care 04/28/18 09:46 Active EKG-ER Only STAT Care 04/28/18 09:46 Active IV Insertion STAT Care 04/28/18 09:46 Active ACETAMINOPHEN Stat Lab 04/28/18 09:45 Completed CBC W DIFF Stat Lab 04/28/18 09:45 Completed CMP Stat Lab 04/28/18 09:45 Completed CULTURE,URINE Stat Lab 04/28/18 09:50 Received ETHYL ALCOHOL Stat Lab 04/28/18 09:45 Completed SALICYLATE Stat Lab 04/28/18 09:45 Completed UA W/RFX UR CULTURE Stat Lab 04/28/18 09:50 Completed Urine Triage Profile Stat Lab 04/28/18 09:50 Completed Medication Summary Discontinued Medications Generic Name Dose Route Start Last Admin Trade Name Freq PRN Reason Stop Dose Admin Sodium Chloride 1,000 mls @ 999 mls/hr 04/28/18 09:46 04/28/18 11:33 Sodium Chloride 0.9% 1000 Ml IV 04/28/18 10:46 Infused .Q1H1M STA Infusion Lorazepam 2 mg 04/28/18 13:13 Ativan 2 Mg/1 Ml Vial IV 04/28/18 13:14 STAT ONE Nitrofurantoin Macrocrystals 100 mg 04/28/18 11:49 04/28/18 11:59 Macrobid 100mg Capsule PO 04/28/18 11:50 100 mg STAT ONE Administration Nitrofurantoin Macrocrystals Confirm 04/28/18 11:58 Macrobid 100mg Capsule Administered 04/28/18 11:59 Dose 100 mg .ROUTE .STK-MED ONE Lab/Rad Data: Laboratory Result Diagrams 04/28/18 09:45 04/28/18 09:45 Laboratory Results 04/28/18 04/28/18 04/28/18 Range/Units 09:50 09:50 09:45 WBC (4.0-10.5) K/mm3 RBC (4.1-5.4) M/mm3 Hgb (12.0-16.0) gm/dl Hct (35-47) % MCV (78-100) fl MCH (26-32) pg MCHC (32-36) g/dl RDW (11.5-14.0) % Plt Count (150-450) K/mm3 MPV (6-9.5) fl Gran % (36.0-66.0) % Eos # (Auto) (0-0.5) Absolute Lymphs (auto) (1.0-4.6) Absolute Monos (auto) (0.0-1.3) Lymphocytes % (24.0-44.0) % Monocytes % (0.0-12.0) % Eosinophils % (0.00-5.0) % Basophils % (0.0-0.4) % Absolute Granulocytes (1.4-6.9) Basophils # (0-0.4) Sodium 140 (137-145) mmol/L Potassium 3.6 (3.5-5.1) mmol/L Chloride 109 H (98-107) mmol/L Carbon Dioxide 22 (22-30) mmol/L Anion Gap 12.5 (5-15) MEQ/L BUN 14 (7-17) mg/dL Creatinine 0.42 L (0.52-1.04) mg/dL Estimated GFR > 60.0 ML/MIN Glucose 78 (74-106) mg/dL Calcium 9.0 (8.4-10.2) mg/dL Total Bilirubin 0.50 (0.2-1.3) mg/dL AST 106 H (14-36) U/L ALT 142 H (0-35) U/L Alkaline Phosphatase 40 (38-126) U/L Serum Total Protein 7.1 (6.3-8.2) g/dL Albumin 3.8 (3.5-5.0) g/dL Urine Color YELLOW (YELLOW) Urine Appearance CLOUDY (CLEAR) Urine pH 6.0 (5-6) Ur Specific [place] 1.020 (1.005-1.025) Urine Protein 100 (Negative) Urine Ketones NEGATIVE (NEGATIVE) Urine Blood MODERATE (0-5) Blu/ul Urine Nitrite NEGATIVE (NEGATIVE) Urine Bilirubin NEGATIVE (NEGATIVE) Urine Urobilinogen NEGATIVE (0-1) mg/dL Ur Leukocyte Esterase LARGE (NEGATIVE) Urine WBC (Auto) >100 (0-5) /HPF Urine RBC (Auto) 26-50 (0-2) /HPF U Epithel Cells (Auto) FEW (FEW) /HPF Urine Bacteria (Auto) RARE (NEGATIVE) /HPF Urine Mucus (Auto) SLIGHT (NEGATIVE) /HPF Urine Yeast (Budding) Moderate (NEGATIVE) /HPF Urine Culture Reflexed YES (NO) Urine Glucose NEGATIVE (NEGATIVE) mg/dL Salicylates < 1.0 L (2-20) mg/dL Urine Opiates Level NEGATIVE (NEGATIVE) Ur Methadone NEGATIVE (NEGATIVE) Acetaminophen < 10 L (10-30) ug/ml Urine Barbiturates NEGATIVE (NEGATIVE) Ur Phencyclidine (PCP) NEGATIVE (NEGATIVE) Urine Amphetamine POSITIVE (NEGATIVE) U Benzodiazepine Level NEGATIVE (NEGATIVE) Urine Cocaine NEGATIVE (NEGATIVE) Urine Marijuana (THC) NEGATIVE (NEGATIVE) Ethyl Alcohol 28 H (0-10) mg/dL 04/28/18 Range/Units 09:45 WBC 6.7 (4.0-10.5) K/mm3 RBC 4.01 L (4.1-5.4) M/mm3 Hgb 13.3 (12.0-16.0) gm/dl Hct 38.4 (35-47) % MCV 95.8 (78-100) fl MCH 33.1 H (26-32) pg MCHC 34.6 (32-36) g/dl RDW 13.2 (11.5-14.0) % Plt Count 298 (150-450) K/mm3 MPV 10.1 H (6-9.5) fl Gran % 63.3 (36.0-66.0) % Eos # (Auto) 0.21 (0-0.5) Absolute Lymphs (auto) 1.58 (1.0-4.6) Absolute Monos (auto) 0.67 (0.0-1.3) Lymphocytes % 23.4 L (24.0-44.0) % Monocytes % 9.9 (0.0-12.0) % Eosinophils % 3.1 (0.00-5.0) % Basophils % 0.3 (0.0-0.4) % Absolute Granulocytes 4.26 (1.4-6.9) Basophils # 0.02 (0-0.4) Sodium (137-145) mmol/L Potassium (3.5-5.1) mmol/L Chloride (98-107) mmol/L Carbon Dioxide (22-30) mmol/L Anion Gap (5-15) MEQ/L BUN (7-17) mg/dL Creatinine (0.52-1.04) mg/dL Estimated GFR ML/MIN Glucose (74-106) mg/dL Calcium (8.4-10.2) mg/dL Total Bilirubin (0.2-1.3) mg/dL AST (14-36) U/L ALT (0-35) U/L Alkaline Phosphatase (38-126) U/L Serum Total Protein (6.3-8.2) g/dL Albumin (3.5-5.0) g/dL Urine Color (YELLOW) Urine Appearance (CLEAR) Urine pH (5-6) Ur Specific [place] (1.005-1.025) Urine Protein (Negative) Urine Ketones (NEGATIVE) Urine Blood (0-5) Blu/ul Urine Nitrite (NEGATIVE) Urine Bilirubin (NEGATIVE) Urine Urobilinogen (0-1) mg/dL Ur Leukocyte Esterase (NEGATIVE) Urine WBC (Auto) (0-5) /HPF Urine RBC (Auto) (0-2) /HPF U Epithel Cells (Auto) (FEW) /HPF Urine Bacteria (Auto) (NEGATIVE) /HPF Urine Mucus (Auto) (NEGATIVE) /HPF Urine Yeast (Budding) (NEGATIVE) /HPF Urine Culture Reflexed (NO) Urine Glucose (NEGATIVE) mg/dL Salicylates (2-20) mg/dL Urine Opiates Level (NEGATIVE) Ur Methadone (NEGATIVE) Acetaminophen (10-30) ug/ml Urine Barbiturates (NEGATIVE) Ur Phencyclidine (PCP) (NEGATIVE) Urine Amphetamine (NEGATIVE) U Benzodiazepine Level (NEGATIVE) Urine Cocaine (NEGATIVE) Urine Marijuana (THC) (NEGATIVE) Ethyl Alcohol (0-10) mg/dL - Progress Progress: improved Progress Note: 04/28/18 13:19 at 1300 pt was accepted for transfer to [facility] for inpt treatment by Dr. Trace Sharma. pt hx(including 24 weeks ), condition, lab and ekg results including uti and drug screen results discussed with them prior to acceptance. Dr. Sharma would like pt to receive one to two mg of ativan prior to transfer. i gave pt one mg iv ativan. Discussed with Dr.: Other (dr. trace sharma) Will see patient in: hospital (full admit) Counseled pt/family regarding: lab results, diagnosis - Departure Time of Disposition: 13:23 Departure Disposition: Transfer Clinical Impression: Suicidal intent, Polysubstance abuse, Condition: Stable Critical Care Time: No Referrals: APZ MARIA [Primary Care Provider] -
[2018-04-28 09:35] VITALS: O2SAT 98
[2018-04-28] MEDS ORDERED: Sodium Chloride 0.9% 1000 ML 1,000 ML IV STA (09:46)
[2018-04-28 10:02] LABS: BASOPHIL % 0.3 % (0.0-0.4); Basophil (Absolute #) 0.02 (0-0.4); Eosinophil % 3.1 % (0.00-5.0); Eosinophil (Absolute #) 0.21 (0-0.5); Granulocyte Absolute (ANC) 4.26 (1.4-6.9); Granulocytes % 63.3 % (36.0-66.0); Hematocrit 38.4 % (35-47); Hemoglobin 13.3 gm/dl (12.0-16.0); Lymphocyte (Absolute #) 1.58 (1.0-4.6); Lymphocytes % 23.4 % (24.0-44.0); Mean Cell Volume 95.8 fl (78-100); Mean Corpuscular Hgb Concent. 34.6 g/dl (32-36); Mean Platelet Volume 10.1 fl (6-9.5); Monocyte (Absolute #) 0.67 (0.0-1.3); Monocytes % 9.9 % (0.0-12.0); Platelet Count 298 K/mm3 (150-450); Red Blood Count 4.01 M/mm3 (4.1-5.4); Red Cell Distribution Width 13.2 % (11.5-14.0); White Blood Count 6.7 K/mm3 (4.0-10.5)
[2018-04-28 10:17] LABS: ALBUMIN 3.8 g/dL (3.5-5.0); ALKALINE PHOSPHATASE 40 U/L (38-126); ANION GAP 12.5 MEQ/L (5-15); BLOOD UREA NITROGEN 14 mg/dL (7-17); CHLORIDE 109 mmol/L (98-107); Carbon Dioxide 22 mmol/L (22-30); Creatinine 1 0.42 mg/dL (0.52-1.04); ETHYL ALCOHOL 28 mg/dL (0-10); Glucose 78 mg/dL (74-106); Potassium 3.6 mmol/L (3.5-5.1); SGOT/AST 106 U/L (14-36); SGPT/ALT 142 U/L (0-35); SODIUM 140 mmol/L (137-145); Total Protein 7.1 g/dL (6.3-8.2)
[2018-04-28 10:18] LABS: ACETAMINOPHEN < 10 ug/ml (10-30); SALICYLATE < 1.0 mg/dL (2-20)
[2018-04-28 10:19] LABS: Mean Corpuscular Hemoglobin 33.1 pg (26-32)
[2018-04-28 11:22] LABS: Appearance CLOUDY (CLEAR); Bilirubin NEGATIVE (NEGATIVE); Blood MODERATE Ery/ul (0-5); Glucose NEGATIVE (NEGATIVE); Ketones NEGATIVE (NEGATIVE); Leukocyte Esterase LARGE (NEGATIVE); Nitrite NEGATIVE (NEGATIVE); Protein,Urine Dip 100 (Negative); Urobilinogen NEGATIVE mg/dL (0-1)
[2018-04-28 11:26] LABS: Barbiturate,Urine NEGATIVE (NEGATIVE); Benzodiazepine,Urine NEGATIVE (NEGATIVE); Cocaine,Urine NEGATIVE (NEGATIVE); Methadone,Urine NEGATIVE (NEGATIVE); Opiate,Urine NEGATIVE (NEGATIVE); PCP,Urine NEGATIVE (NEGATIVE); THC,Urine NEGATIVE (NEGATIVE)
[2018-04-28] MEDS ORDERED: Macrobid 100MG Capsule PO ONE (11:49)
[2018-04-28 11:57] LABS: Amphetamine,Urine POSITIVE (NEGATIVE)
[2018-04-28] MEDS ORDERED: Macrobid 100MG Capsule ONE (11:58)
[2018-04-28 13:01] VITALS: BP 128/80; PULSE 118
[2018-04-28] MEDS ORDERED: Ativan 2 MG/1 ML VIAL IV ONE ×2 (13:13→13:16)
[2018-04-28] MEDS ORDERED: Ativan 2 MG/1 ML VIAL ONE (13:18)
== END 2018-04-28 14:03 | disposition short-term general hospital (02) ==
LOC: ED 09:05
DX: O99.322 Drug use complicating pregnancy, second trimester (principal); F19.10 Other psychoactive substance abuse, uncomplicated; Z3A.24 24 weeks gestation of pregnancy; R45.851 Suicidal ideations
CPT/HCPCS: 36000; 36415; 80053; 80307; 81001; 85025; 87086; 93005; 96374; 99285; G0481; J2060; A9270-GY; G0480

== ENCOUNTER 2018-05-29 15:52 | Emergency (ER) | payer OTHER ==
--- NOTE | 2018-05-29 16:19 | ERPHSYRPT ---
- History of Present Illness Time Seen by Provider: 05/29/18 16:09 Historian: patient Exam Limitations: no limitations Patient Subjective Stated Complaint: here for abd cramping started about 0930 this morning,wihe spotting yesterdat, has has n/v but is 11 weeks . 9, para 2 Triage Nursing Assessment: pt alert, anxious, co abd cramping to right side, abd soft, no spotting now Physician History: The patient is a by 32-year-old female at 11 weeks complaining of right lower quadrant abdominal cramping that began this morning. She had some mild spotting yesterday but none today. She has the "usual morning sickness". She denies fever or chills. She has not seen her OB doctor yet. However, she went to [facility] a few weeks ago for abdominal pain at which time an abdominal ultrasound and OB ultrasound was performed. She states she has gallbladder sludge. They told her when her expected due date is (December 18, 2018). She is to see Dr. Ramírez next week. Her past medical history is significant for multiple drug abuse that includes IV meth amphetamine, narcotic pill abuse, alcohol abuse, and hepatitis C. The patient has been drug free since being told she was . Today she requests no narcotic pain relievers. Timing/Duration: today, sudden Activities at Onset: none Quality: cramping Abdominal Pain Onset Location: RLQ Pain Radiation: no radiation Severity of Pain-Max: moderate Severity of Pain-Current: moderate Modifying Factors: Improves With: nothing Associated Symptoms: denies symptoms Previous symptoms: no prior history Allergies/Adverse Reactions: amoxicillin trihydrate [From Augmentin] Allergy (Intermediate, Verified 16:04) Vomiting cefuroxime Allergy (Intermediate, Verified 05/29/18 16:04) Vomiting Latex, Natural Rubber Allergy (Intermediate, Verified 05/29/18 16:04) Hives penicillin G Allergy (Intermediate, Verified 05/29/18 16:04) CHILDHOOD Penicillins Allergy (Intermediate, Verified 05/29/18 16:04) Rash potassium clavulanate [From Augmentin] Allergy (Intermediate, Verified 05/29/18 16:04) amoxicillin Allergy (Mild, Verified 05/29/18 16:04) Rash clindamycin Allergy (Mild, Verified 05/29/18 16:04) Vomiting contrast dye Allergy (Severe, Uncoded 05/29/18 16:04) Shortness of Breath vomiting Home Medications: Aspirin EC 81 mg [Ecotrin 81 mg] 81 mg PO DAILY 03/11/18 [History] Metformin HCl 500 mg [Glucophage 500 MG] 500 mg PO BIDWM 03/11/18 [History ] Vits W-Ca,Fe,FA(<1Mg) [] 1 ea DAILY 05/29/18 [History] Hx Tetanus, Diphtheria Vaccination/Date Given: No Hx Influenza Vaccination/Date Given: No Hx Pneumococcal Vaccination/Date Given: No Immunizations Up to Date: Yes - Review of Systems Constitutional: No Fever, No Chills Eyes: No Symptoms Ears, Nose, & Throat: No Symptoms Respiratory: No Cough, No Dyspnea Cardiac: No Chest Pain, No Edema, No Syncope Abdominal/Gastrointestinal: Abdominal Pain Genitourinary Symptoms: Musculoskeletal: No Back Pain, No Neck Pain Skin: No Rash Neurological: No Dizziness, No Focal Weakness, No Sensory Changes Psychological: No Symptoms Endocrine: No Symptoms Hematologic/Lymphatic: No Symptoms Immunological/Allergic: No Symptoms All Other Systems: Reviewed and Negative - Past Medical History Pertinent Past Medical History: Yes Neurological History: No Pertinent History ENT History: No Pertinent History Cardiac History: Myocardial Infarction ([place]) Respiratory History: Asthma Endocrine Medical History: Diabetes Type II Musculoskeletal History: No Pertinent History GI Medical History: No Pertinent History History: No Pertinent History Psycho-Social History: Anxiety, Bipolar, Depression, Other Female Reproductive Disorders: Endometriosis Other Medical History: elevated liver enzymes,. pt states agoraphobia and ptsd - Past Surgical History Past Surgical History: Yes Neuro Surgical History: No Pertinent History Cardiac: Cardiac Catheterization Respiratory: No Pertinent History Gastrointestinal: No Pertinent History Genitourinary: No Pertinent History Musculoskeletal: Orthopedic Surgery Female Surgical History: Dilation & Curettage, Section Other Surgical History: BACK surgery-implanted rods. d and c - Social History Smoking Status: Former smoker How long have you smoked: 27 years Exposure to second hand smoke: Yes Drug Use: marijuana, methamphetamines Patient Lives Alone: No Significant Family History: no pertinent family hx - Female History Hx Last Menstrual Period: january Hx Now: Yes (11 weeks) Expected Date of Delivery: 12/18/18 - Nursing Vital Signs Nursing Vital Signs: Initial Vital Signs Temperature 98.0 F 05/29/18 15:56 Pulse Rate 102 H 05/29/18 15:56 Respiratory Rate 18 05/29/18 15:56 Blood Pressure 128/66 05/29/18 15:56 O2 Sat by Pulse Oximetry 99 05/29/18 15:56 Pain Scale Pain Intensity 9 - Physical Exam General Appearance: moderate distress Eye Exam: PERRL/EOMI, eyes nml inspection Ears, Nose, Throat Exam: normal ENT inspection, pharynx normal, moist mucous membranes Neck Exam: normal inspection, non-tender, supple, full range of motion Respiratory Exam: normal breath sounds, lungs clear, No respiratory distress Cardiovascular Exam: regular rate/rhythm, normal heart sounds Gastrointestinal/Abdomen Exam: tenderness (RLQ) Pelvic Exam: not done Rectal Exam: not done Back Exam: normal inspection, normal range of motion, No CVA tenderness, No vertebral tenderness Extremity Exam: normal inspection, normal range of motion, pelvis stable Neurologic Exam: alert, oriented x 3, cooperative, normal mood/affect, nml cerebellar function, sensation nml, No motor deficits Skin Exam: normal color, warm, dry SpO2 Interpretation: normal SpO2: 99 Oxygen Delivery: Room Air - Radiology Ultrasound Exam OB Ultrasound: discussed w/radiologist (report given by U/S tech), Other (single intrauterine ; fetus at 11 wks 1 day; FHR at 171 bpm; 3 cm left ovarian cyst.) Ordered Tests: Active Orders 24 hr Category Date Time Status Clean Catch Urine Specimen STAT Care 05/29/18 16:24 Active IV Insertion STAT Care 05/29/18 16:24 Active OB <14 WKS 1ST GESTATION [US] Stat Exams 05/29/18 16:27 Ordered CBC W DIFF Stat Lab 05/29/18 16:45 Completed CMP Stat Lab 05/29/18 16:45 Completed HCG, Quantitative (Inhouse) Stat Lab 05/29/18 16:45 Received LIPASE Stat Lab 05/29/18 16:45 Completed Lactic Acid Stat Lab 05/29/18 16:24 Completed UA W/RFX UR CULTURE Stat Lab 05/29/18 16:45 Completed Urine Triage Profile Stat Lab 05/29/18 16:45 Completed Medication Summary Discontinued Medications Generic Name Dose Route Start Last Admin Trade Name Freq PRN Reason Stop Dose Admin Acetaminophen 975 mg 05/29/18 16:24 05/29/18 16:36 Tylenol 325 Mg PO 05/29/18 16:25 975 mg STAT ONE Administration Acetaminophen Confirm 05/29/18 16:34 Tylenol 325 Mg Administered 05/29/18 16:35 Dose 975 mg .ROUTE .STK-MED ONE Sodium Chloride 1,000 mls @ 999 mls/hr 05/29/18 16:24 05/29/18 16:35 Sodium Chloride 0.9% 1000 Ml IV 05/29/18 17:24 999 mls/hr .Q1H1M STA Administration Sodium Chloride Confirm 05/29/18 16:34 Sodium Chloride 0.9% 1000 Ml Administered 05/29/18 16:35 Dose 1,000 mls @ ud .ROUTE .STK-MED ONE Promethazine HCl 12.5 mg 05/29/18 16:24 05/29/18 16:35 Phenergan 25 Mg Inj IV 05/29/18 16:25 12.5 mg STAT ONE Administration Promethazine HCl Confirm 05/29/18 16:34 Phenergan 25 Mg Inj Administered 05/29/18 16:35 Dose 25 mg .ROUTE .STK-MED ONE Lab/Rad Data: Laboratory Result Diagrams 05/29/18 16:45 05/29/18 16:45 Laboratory Results 05/29/18 05/29/18 05/29/18 Range/Units 16:45 16:45 16:45 WBC (4.0-10.5) K/mm3 RBC (4.1-5.4) M/mm3 Hgb (12.0-16.0) gm/dl Hct (35-47) % MCV (78-100) fl MCH (26-32) pg MCHC (32-36) g/dl RDW (11.5-14.0) % Plt Count (150-450) K/mm3 MPV (6-9.5) fl Gran % (36.0-66.0) % Eos # (Auto) (0-0.5) Absolute Lymphs (auto) (1.0-4.6) Absolute Monos (auto) (0.0-1.3) Lymphocytes % (24.0-44.0) % Monocytes % (0.0-12.0) % Eosinophils % (0.00-5.0) % Basophils % (0.0-0.4) % Absolute Granulocytes (1.4-6.9) Basophils # (0-0.4) Sodium 138 (137-145) mmol/L Potassium 3.8 (3.5-5.1) mmol/L Chloride 106 (98-107) mmol/L Carbon Dioxide 25 (22-30) mmol/L Anion Gap 11.1 (5-15) MEQ/L BUN 15 (7-17) mg/dL Creatinine 0.48 L (0.52-1.04) mg/dL Estimated GFR > 60.0 ML/MIN Glucose 87 (74-106) mg/dL Lactic Acid (0.4-2.0) Calcium 9.3 (8.4-10.2) mg/dL Total Bilirubin 0.20 (0.2-1.3) mg/dL AST 77 H (14-36) U/L ALT 116 H (0-35) U/L Alkaline Phosphatase 35 L (38-126) U/L Serum Total Protein 7.3 (6.3-8.2) g/dL Albumin 3.9 (3.5-5.0) g/dL Lipase 36 (23-300) U/L Urine Color YELLOW (YELLOW) Urine Appearance CLEAR (CLEAR) Urine pH 5.0 (5-6) Ur Specific [place] 1.025 (1.005-1.025) Urine Protein NEGATIVE (Negative) Urine Ketones NEGATIVE (NEGATIVE) Urine Blood NEGATIVE (0-5) Blu/ul Urine Nitrite NEGATIVE (NEGATIVE) Urine Bilirubin NEGATIVE (NEGATIVE) Urine Urobilinogen NEGATIVE (0-1) mg/dL Ur Leukocyte Esterase NEGATIVE (NEGATIVE) Urine WBC (Auto) 3-5 (0-5) /HPF Urine RBC (Auto) NONE (0-2) /HPF U Epithel Cells (Auto) RARE (FEW) /HPF Urine Bacteria (Auto) NONE (NEGATIVE) /HPF Urine Mucus (Auto) SLIGHT (NEGATIVE) /HPF Urine Culture Reflexed NO (NO) Urine Glucose NEGATIVE (NEGATIVE) mg/dL Urine Opiates Level NEGATIVE (NEGATIVE) Ur Methadone NEGATIVE (NEGATIVE) Urine Barbiturates NEGATIVE (NEGATIVE) Ur Phencyclidine (PCP) NEGATIVE (NEGATIVE) Urine Amphetamine NEGATIVE (NEGATIVE) U Benzodiazepine Level NEGATIVE (NEGATIVE) Urine Cocaine NEGATIVE (NEGATIVE) Urine Marijuana (THC) NEGATIVE (NEGATIVE) 05/29/18 05/29/18 Range/Units 16:45 16:24 WBC 8.1 (4.0-10.5) K/mm3 RBC 4.09 L (4.1-5.4) M/mm3 Hgb 13.8 (12.0-16.0) gm/dl Hct 40.3 (35-47) % MCV 98.5 (78-100) fl MCH 33.7 H (26-32) pg MCHC 34.2 (32-36) g/dl RDW 12.4 (11.5-14.0) % Plt Count 303 (150-450) K/mm3 MPV 10.2 H (6-9.5) fl Gran % 69.3 H (36.0-66.0) % Eos # (Auto) 0.27 (0-0.5) Absolute Lymphs (auto) 1.70 (1.0-4.6) Absolute Monos (auto) 0.52 (0.0-1.3) Lymphocytes % 20.9 L (24.0-44.0) % Monocytes % 6.4 (0.0-12.0) % Eosinophils % 3.3 (0.00-5.0) % Basophils % 0.1 (0.0-0.4) % Absolute Granulocytes 5.64 (1.4-6.9) Basophils # 0.01 (0-0.4) Sodium (137-145) mmol/L Potassium (3.5-5.1) mmol/L Chloride (98-107) mmol/L Carbon Dioxide (22-30) mmol/L Anion Gap (5-15) MEQ/L BUN (7-17) mg/dL Creatinine (0.52-1.04) mg/dL Estimated GFR ML/MIN Glucose (74-106) mg/dL Lactic Acid 0.7 (0.4-2.0) Calcium (8.4-10.2) mg/dL Total Bilirubin (0.2-1.3) mg/dL AST (14-36) U/L ALT (0-35) U/L Alkaline Phosphatase (38-126) U/L Serum Total Protein (6.3-8.2) g/dL Albumin (3.5-5.0) g/dL Lipase (23-300) U/L Urine Color (YELLOW) Urine Appearance (CLEAR) Urine pH (5-6) Ur Specific [place] (1.005-1.025) Urine Protein (Negative) Urine Ketones (NEGATIVE) Urine Blood (0-5) Blu/ul Urine Nitrite (NEGATIVE) Urine Bilirubin (NEGATIVE) Urine Urobilinogen (0-1) mg/dL Ur Leukocyte Esterase (NEGATIVE) Urine WBC (Auto) (0-5) /HPF Urine RBC (Auto) (0-2) /HPF U Epithel Cells (Auto) (FEW) /HPF Urine Bacteria (Auto) (NEGATIVE) /HPF Urine Mucus (Auto) (NEGATIVE) /HPF Urine Culture Reflexed (NO) Urine Glucose (NEGATIVE) mg/dL Urine Opiates Level (NEGATIVE) Ur Methadone (NEGATIVE) Urine Barbiturates (NEGATIVE) Ur Phencyclidine (PCP) (NEGATIVE) Urine Amphetamine (NEGATIVE) U Benzodiazepine Level (NEGATIVE) Urine Cocaine (NEGATIVE) Urine Marijuana (THC) (NEGATIVE) - Progress Progress: improved Progress Note: 05/29/18 17:47 pts given tylenol 1000 mg po and fluids IV. feeling better. wants to go home. Counseled pt/family regarding: lab results, diagnosis, need for follow-up, rad results - Departure Time of Disposition: 17:48 Departure Disposition: Home Clinical Impression: Abdominal pain, Condition: Stable Critical Care Time: No Referrals: PAZ MARIA [Primary Care Provider] - Additional Instructions: You have abdominal pain. You were given Tylenol 1000 mg orally and fluids by IV in the ER. Take tylenol 1000 mg every 6 to 8 hrs as needed. The OB ultrasound showed an intrauterine with fetus at 11 weeks 1 day with a heart rate of 171 bpm. You also have a 3 cm left ovarian cyst. Follow-up with your OB doctor, Dr. Ramírez, on Wednesday as scheduled.
[2018-05-29] MEDS ORDERED: Sodium Chloride 0.9% 1000 ML 1,000 ML ONE (16:34)
[2018-05-29] MEDS ORDERED: Phenergan 25 MG INJ ONE (16:34)
[2018-05-29] MEDS ORDERED: TYLENOL 325 MG ONE (16:34)
[2018-05-29] MEDS: Sodium Chloride 0.9% 1000 ML 1,000 ML IV STA (16:35)
[2018-05-29] MEDS: Phenergan 25 MG INJ IV ONE (16:35)
[2018-05-29] MEDS: TYLENOL 325 MG PO ONE (16:36)
[2018-05-29 16:56] LABS: BASOPHIL % 0.1 % (0.0-0.4); Basophil (Absolute #) 0.01 (0-0.4); Eosinophil % 3.3 % (0.00-5.0); Eosinophil (Absolute #) 0.27 (0-0.5); Granulocyte Absolute (ANC) 5.64 (1.4-6.9); Granulocytes % 69.3 % (36.0-66.0); Hematocrit 40.3 % (35-47); Hemoglobin 13.8 gm/dl (12.0-16.0); Lymphocytes % 20.9 % (24.0-44.0); Mean Cell Volume 98.5 fl (78-100); Mean Corpuscular Hemoglobin 33.7 pg (26-32); Mean Corpuscular Hgb Concent. 34.2 g/dl (32-36); Mean Platelet Volume 10.2 fl (6-9.5); Monocyte (Absolute #) 0.52 (0.0-1.3); Monocytes % 6.4 % (0.0-12.0); Platelet Count 303 K/mm3 (150-450); Red Blood Count 4.09 M/mm3 (4.1-5.4); Red Cell Distribution Width 12.4 % (11.5-14.0); White Blood Count 8.1 K/mm3 (4.0-10.5)
[2018-05-29 17:01] LABS: Appearance CLEAR (CLEAR); Bilirubin NEGATIVE (NEGATIVE); Blood NEGATIVE Ery/ul (0-5); Glucose NEGATIVE (NEGATIVE); Ketones NEGATIVE (NEGATIVE); Leukocyte Esterase NEGATIVE (NEGATIVE); Nitrite NEGATIVE (NEGATIVE); Protein,Urine Dip NEGATIVE (Negative); Specific Gravity 1.025 (1.005-1.025); Urobilinogen NEGATIVE mg/dL (0-1)
[2018-05-29 17:11] LABS: ALBUMIN 3.9 g/dL (3.5-5.0); ALKALINE PHOSPHATASE 35 U/L (38-126); ANION GAP 11.1 MEQ/L (5-15); BLOOD UREA NITROGEN 15 mg/dL (7-17); CHLORIDE 106 mmol/L (98-107); Calcium 9.3 mg/dL (8.4-10.2); Carbon Dioxide 25 mmol/L (22-30); Creatinine 1 0.48 mg/dL (0.52-1.04); Glucose 87 mg/dL (74-106); LIPASE 36 U/L (23-300); Potassium 3.8 mmol/L (3.5-5.1); SGOT/AST 77 U/L (14-36); SGPT/ALT 116 U/L (0-35); SODIUM 138 mmol/L (137-145); Total Protein 7.3 g/dL (6.3-8.2)
[2018-05-29 17:13] LABS: Amphetamine,Urine NEGATIVE (NEGATIVE); Barbiturate,Urine NEGATIVE (NEGATIVE); Benzodiazepine,Urine NEGATIVE (NEGATIVE); Cocaine,Urine NEGATIVE (NEGATIVE); Methadone,Urine NEGATIVE (NEGATIVE); Opiate,Urine NEGATIVE (NEGATIVE); PCP,Urine NEGATIVE (NEGATIVE); THC,Urine NEGATIVE (NEGATIVE)
[2018-05-29 18:03] VITALS: BP 102/58; PULSE 88; O2SAT 98
--- NOTE | 2018-05-29 19:33 | XRAY ---
Indication: Right lower quadrant pain. Spotting. Two-dimensional transabdominal early OB ultrasound performed. Comparison: None for this . There is a single intrauterine gestational sac with presence of a single pole. Mean crown-rump length measures 4.18 cm corresponding to 11 weeks 1 day. heart rate heart 171 bpm. No abnormal subchorionic fluid. 3.4 cm left ovary corpus luteal cyst. Right ovary unremarkable. No suspicious adnexal mass or free fluid. Impression: Single viable intrauterine measuring 11 weeks 1 day. Expected date confinement is December 17, 2018. Comment: Preliminary report was given.
== END 2018-05-29 18:00 | disposition home or self-care (01) ==
LOC: ED 15:52
DX: O26.891 Other specified pregnancy related conditions, first trimester (principal); Z3A.11 11 weeks gestation of pregnancy; R10.31 Right lower quadrant pain; Z79.899 Other long term (current) drug therapy; N83.202 Unspecified ovarian cyst, left side
CPT/HCPCS: 36000; 36415; 76801; 80053; 80307; 81001; 83605; 83690; 84702; 85025; 96360; 96374; 99285; J2550; A9270-GY

== ENCOUNTER 2018-06-06 23:43 | Emergency (ER) | payer OTHER ==
--- NOTE | 2018-06-07 00:24 | ERPHSYRPT ---
- History of Present Illness Time Seen by Provider: 06/07/18 00:18 Historian: patient Exam Limitations: no limitations Patient Subjective Stated Complaint: Fall/Abdominal pain Triage Nursing Assessment: Patient brought back to ED via w/c at this time and transferred self to bed per assist of 1. Patient was walking out of a restuarant and fell landing on stomach. Patient is 12 weeks and states she is having lower right sided abdominal pain. Patient states she was seen at [facility] two days ago for a UTI, but hasn't gotten her antibiotic filled yet. heart tones noted to be 160. Patient states pain is 10/10. Patient constantly moving around and agitated. Patient states she just injected meth 4 days ago. No visible areas noted to abdomen or any other part of body. Physician History: 32-year-old white female who states she is With estimated gestational age 12 weeks 2 days arrives with complaint of lower abdominal pain since falling just prior to arrival. She states that she fell on the sidewalk. She has not had any vaginal bleeding no nausea no vomiting. Past medical history includes myocardial infarction, asthma, diabetes type 2, anxiety, bipolar, endometriosis, elevated liver enzymes, [place] phobia, posttraumatic stress disorder Past surgical history cardiac catheter orthopedic surgery D&C back surgery with rods Patient does admit to methamphetamine use 4 days ago. Patient has a history of substance abuse. Timing/Duration: today Activities at Onset: none Quality: cramping Abdominal Pain Onset Location: suprapubic Pain Radiation: no radiation Severity of Pain-Max: moderate Severity of Pain-Current: moderate Modifying Factors: Improves With: nothing Associated Symptoms: No back, No chest pain, No diaphoresis, No diarrhea, No fever/chills, No fatigue, No headache, No heartburn, No loss of appetite, No nausea, No neck pain, No rash, No shortness of breath, No syncope, No vomiting, No weakness Previous symptoms: other (patient was seen 1 week in this emergency room for abdominal pain pelvic ultrasound IUP 11 weeks 1 day at that time, 3 cm ovarian cyst. Patient states she was seen at [facility] 2 days ago diagnosed with UTI, did not fill her prescriptions) Allergies/Adverse Reactions: amoxicillin trihydrate [From Augmentin] Allergy (Intermediate, Verified 00:08) Vomiting cefuroxime Allergy (Intermediate, Verified 06/07/18 00:08) Vomiting Latex, Natural Rubber Allergy (Intermediate, Verified 06/07/18 00:08) Hives penicillin G Allergy (Intermediate, Verified 06/07/18 00:08) CHILDHOOD Penicillins Allergy (Intermediate, Verified 06/07/18 00:08) Rash potassium clavulanate [From Augmentin] Allergy (Intermediate, Verified 06/07/18 00:08) amoxicillin Allergy (Mild, Verified 06/07/18 00:08) Rash clindamycin Allergy (Mild, Verified 06/07/18 00:08) Vomiting contrast dye Allergy (Severe, Uncoded 06/07/18 00:08) Shortness of Breath vomiting Home Medications: Aspirin EC 81 mg [Ecotrin 81 mg] 81 mg PO DAILY 03/11/18 [History] Metformin HCl 500 mg [Glucophage 500 MG] 500 mg PO DAILY 03/11/18 [History ] Vits W-Ca,Fe,FA(<1Mg) [] 1 ea DAILY 05/29/18 [History] Hx Tetanus, Diphtheria Vaccination/Date Given: Yes Hx Influenza Vaccination/Date Given: Yes Hx Pneumococcal Vaccination/Date Given: No Immunizations Up to Date: Yes - Review of Systems Constitutional: No Fever, No Chills Eyes: No Symptoms Ears, Nose, & Throat: No Symptoms Respiratory: No Cough, No Dyspnea Cardiac: No Chest Pain, No Edema, No Syncope Abdominal/Gastrointestinal: Abdominal Pain, No Nausea, No Vomiting, No Diarrhea , No Constipation, No Hematemesis, No Hematochezia, No Melena, No Dysphagia, No Appetite Changes Genitourinary Symptoms: (patient 12 weeks 2 days by ultrasound), No Dysuria, No Frequency, No Hematuria, No Hesitancy, No Incontinence, No Urgency, No Urinary Retention, No Flank Pain, No Menorrhagia Musculoskeletal: No Back Pain, No Neck Pain Skin: No Rash Neurological: No Dizziness, No Focal Weakness, No Sensory Changes Psychological: No Symptoms, Drug Abuse (patient with history of methamphetamine use) Endocrine: No Symptoms All Other Systems: Reviewed and Negative - Past Medical History Pertinent Past Medical History: Yes Neurological History: No Pertinent History ENT History: No Pertinent History Cardiac History: Myocardial Infarction (MS) Respiratory History: Asthma Endocrine Medical History: Diabetes Type II Musculoskeletal History: No Pertinent History GI Medical History: No Pertinent History History: No Pertinent History Psycho-Social History: Anxiety, Bipolar, Depression, Other Female Reproductive Disorders: Endometriosis Other Medical History: elevated liver enzymes,. pt states agoraphobia and ptsd - Past Surgical History Past Surgical History: Yes Neuro Surgical History: No Pertinent History Cardiac: Cardiac Catheterization Respiratory: No Pertinent History Gastrointestinal: No Pertinent History Genitourinary: No Pertinent History Musculoskeletal: Orthopedic Surgery Female Surgical History: Dilation & Curettage, Section Other Surgical History: BACK surgery-implanted rods. d and c - Social History Smoking Status: Former smoker How long have you smoked: 27 years Exposure to second hand smoke: Yes Drug Use: marijuana, methamphetamines Patient Lives Alone: No Significant Family History: no pertinent family hx - Female History Hx Last Menstrual Period: February 2018 Hx Now: Yes Expected Date of Delivery: 06/06/18 - Nursing Vital Signs Nursing Vital Signs: Initial Vital Signs Temperature 98.4 F 06/06/18 23:51 Pulse Rate 100 H 06/06/18 23:51 Respiratory Rate 18 06/06/18 23:51 Blood Pressure 126/91 06/06/18 23:51 O2 Sat by Pulse Oximetry 99 06/06/18 23:51 Pain Scale Pain Intensity 0 - Physical Exam General Appearance: other (Well-developed well-nouished white female frequent random movements, becomes agitated and flails her arms about when I asked her about substance use) Eye Exam: PERRL/EOMI, eyes nml inspection Ears, Nose, Throat Exam: normal ENT inspection, pharynx normal, moist mucous membranes Neck Exam: normal inspection, non-tender, supple, full range of motion Respiratory Exam: normal breath sounds, lungs clear, No respiratory distress Cardiovascular Exam: regular rate/rhythm, normal heart sounds, normal peripheral pulses, No murmur Gastrointestinal/Abdomen Exam: soft, normal bowel sounds, tenderness (mild suprapubic tendernerness), other ( heart tones 160 per nurse) Back Exam: normal inspection, normal range of motion, No CVA tenderness, No vertebral tenderness Extremity Exam: normal inspection Neurologic Exam: alert, oriented x 3, cooperative, box office manager II-XII nml as tested, normal mood/affect, nml cerebellar function, sensation nml, No motor deficits Skin Exam: normal color, warm, dry SpO2 Interpretation: normal (99%) SpO2: 99 Oxygen Delivery: Room Air - Course Nursing assessment & vital signs reviewed: Yes Ordered Tests: Active Orders 24 hr Category Date Time Status Heart Tones-ED STAT Care 06/06/18 23:56 Active IV Insertion STAT Care 06/07/18 00:16 Active ACETAMINOPHEN Stat Lab 06/07/18 00:53 Completed AMYLASE Stat Lab 06/07/18 00:53 Completed CBC W DIFF Stat Lab 06/07/18 00:53 Completed CMP Stat Lab 06/07/18 00:53 Completed ETHYL ALCOHOL Stat Lab 06/07/18 00:53 Completed LIPASE Stat Lab 06/07/18 00:53 Completed SALICYLATE Stat Lab 06/07/18 00:53 Completed UA W/RFX UR CULTURE Stat Lab 06/07/18 00:20 Completed Urine Triage Profile Stat Lab 06/07/18 00:20 Completed Medication Summary Discontinued Medications Generic Name Dose Route Start Last Admin Trade Name Freq PRN Reason Stop Dose Admin Acetaminophen 650 mg 06/07/18 01:21 06/07/18 01:24 Tylenol 325 Mg PO 06/07/18 01:22 650 mg STAT ONE Administration Acetaminophen Confirm 06/07/18 01:24 Tylenol 325 Mg Administered 06/07/18 01:25 Dose 650 mg .ROUTE .STK-MED ONE Sodium Chloride 1,000 mls @ 999 mls/hr 06/07/18 00:16 06/07/18 02:43 Sodium Chloride 0.9% 1000 Ml IV 06/07/18 01:16 Infused .Q1H1M STA Infusion Sodium Chloride Confirm 06/07/18 01:00 Sodium Chloride 0.9% 1000 Ml Administered 06/07/18 01:01 Dose 1,000 mls @ ud .ROUTE .STK-MED ONE Lab/Rad Data: Laboratory Result Diagrams 06/07/18 00:53 06/07/18 00:53 Laboratory Results 06/07/18 06/07/18 06/07/18 Range/Units 00:53 00:53 00:53 WBC 6.5 (4.0-10.5) K/mm3 RBC 3.65 L (4.1-5.4) M/mm3 Hgb 12.2 (12.0-16.0) gm/dl Hct 35.5 (35-47) % MCV 97.3 (78-100) fl MCH 33.4 H (26-32) pg MCHC 34.4 (32-36) g/dl RDW 12.1 (11.5-14.0) % Plt Count 299 (150-450) K/mm3 MPV 10.1 H (6-9.5) fl Gran % 56.0 (36.0-66.0) % Eos # (Auto) 0.28 (0-0.5) Absolute Lymphs (auto) 1.93 (1.0-4.6) Absolute Monos (auto) 0.63 (0.0-1.3) Lymphocytes % 29.8 (24.0-44.0) % Monocytes % 9.7 (0.0-12.0) % Eosinophils % 4.3 (0.00-5.0) % Basophils % 0.2 (0.0-0.4) % Absolute Granulocytes 3.63 (1.4-6.9) Basophils # 0.01 (0-0.4) Sodium 138 (137-145) mmol/L Potassium 3.6 (3.5-5.1) mmol/L Chloride 107 (98-107) mmol/L Carbon Dioxide 24 (22-30) mmol/L Anion Gap 10.3 (5-15) MEQ/L BUN 7 (7-17) mg/dL Creatinine 0.47 L (0.52-1.04) mg/dL Estimated GFR > 60.0 ML/MIN Glucose 88 (74-106) mg/dL Calcium 9.0 (8.4-10.2) mg/dL Total Bilirubin 0.10 L (0.2-1.3) mg/dL AST 52 H (14-36) U/L ALT 80 H (0-35) U/L Alkaline Phosphatase 33 L (38-126) U/L Serum Total Protein 6.4 (6.3-8.2) g/dL Albumin 3.3 L (3.5-5.0) g/dL Amylase 45 (30-110) U/L Lipase 48 (23-300) U/L Urine Color (YELLOW) Urine Appearance (CLEAR) Urine pH (5-6) Ur Specific [place] (1.005-1.025) Urine Protein (Negative) Urine Ketones (NEGATIVE) Urine Blood (0-5) Blu/ul Urine Nitrite (NEGATIVE) Urine Bilirubin (NEGATIVE) Urine Urobilinogen (0-1) mg/dL Ur Leukocyte Esterase (NEGATIVE) Urine WBC (Auto) (0-5) /HPF Urine RBC (Auto) (0-2) /HPF U Epithel Cells (Auto) (FEW) /HPF Urine Bacteria (Auto) (NEGATIVE) /HPF Urine Mucus (Auto) (NEGATIVE) /HPF Urine Culture Reflexed (NO) Urine Glucose (NEGATIVE) mg/dL Salicylates < 1.0 L (2-20) mg/dL Urine Opiates Level (NEGATIVE) Ur Methadone (NEGATIVE) Acetaminophen < 10 L (10-30) ug/ml Urine Barbiturates (NEGATIVE) Ur Phencyclidine (PCP) (NEGATIVE) Urine Amphetamine (NEGATIVE) U Benzodiazepine Level (NEGATIVE) Urine Cocaine (NEGATIVE) Urine Marijuana (THC) (NEGATIVE) Ethyl Alcohol < 10 (0-10) mg/dL 06/07/18 06/07/18 Range/Units 00:20 00:20 WBC (4.0-10.5) K/mm3 RBC (4.1-5.4) M/mm3 Hgb (12.0-16.0) gm/dl Hct (35-47) % MCV (78-100) fl MCH (26-32) pg MCHC (32-36) g/dl RDW (11.5-14.0) % Plt Count (150-450) K/mm3 MPV (6-9.5) fl Gran % (36.0-66.0) % Eos # (Auto) (0-0.5) Absolute Lymphs (auto) (1.0-4.6) Absolute Monos (auto) (0.0-1.3) Lymphocytes % (24.0-44.0) % Monocytes % (0.0-12.0) % Eosinophils % (0.00-5.0) % Basophils % (0.0-0.4) % Absolute Granulocytes (1.4-6.9) Basophils # (0-0.4) Sodium (137-145) mmol/L Potassium (3.5-5.1) mmol/L Chloride (98-107) mmol/L Carbon Dioxide (22-30) mmol/L Anion Gap (5-15) MEQ/L BUN (7-17) mg/dL Creatinine (0.52-1.04) mg/dL Estimated GFR ML/MIN Glucose (74-106) mg/dL Calcium (8.4-10.2) mg/dL Total Bilirubin (0.2-1.3) mg/dL AST (14-36) U/L ALT (0-35) U/L Alkaline Phosphatase (38-126) U/L Serum Total Protein (6.3-8.2) g/dL Albumin (3.5-5.0) g/dL Amylase (30-110) U/L Lipase (23-300) U/L Urine Color YELLOW (YELLOW) Urine Appearance SLIGHTLY CLOUDY (CLEAR) Urine pH 7.0 (5-6) Ur Specific [place] 1.010 (1.005-1.025) Urine Protein NEGATIVE (Negative) Urine Ketones NEGATIVE (NEGATIVE) Urine Blood NEGATIVE (0-5) Blu/ul Urine Nitrite NEGATIVE (NEGATIVE) Urine Bilirubin NEGATIVE (NEGATIVE) Urine Urobilinogen 2 (0-1) mg/dL Ur Leukocyte Esterase NEGATIVE (NEGATIVE) Urine WBC (Auto) 0-2 (0-5) /HPF Urine RBC (Auto) 0-2 (0-2) /HPF U Epithel Cells (Auto) RARE (FEW) /HPF Urine Bacteria (Auto) RARE (NEGATIVE) /HPF Urine Mucus (Auto) SLIGHT (NEGATIVE) /HPF Urine Culture Reflexed NO (NO) Urine Glucose NEGATIVE (NEGATIVE) mg/dL Salicylates (2-20) mg/dL Urine Opiates Level NEGATIVE (NEGATIVE) Ur Methadone NEGATIVE (NEGATIVE) Acetaminophen (10-30) ug/ml Urine Barbiturates NEGATIVE (NEGATIVE) Ur Phencyclidine (PCP) NEGATIVE (NEGATIVE) Urine Amphetamine NEGATIVE (NEGATIVE) U Benzodiazepine Level NEGATIVE (NEGATIVE) Urine Cocaine NEGATIVE (NEGATIVE) Urine Marijuana (THC) NEGATIVE (NEGATIVE) Ethyl Alcohol (0-10) mg/dL - Progress Progress: improved Progress Note: 06/07/18 00:24 This is a 32-year-old white female, 9 para 2) who arrives with complaint of pain in the suprapubic region symptoms since falling on the sidewalk outside a restaurant just prior to arrival. Patient had been seen here last week with complaints of abdominal pain she was noted to be 11 weeks 1 day by ultrasound on that visit (05/29/2018) Patient also was noted have a 3 cm ovarian cyst at that time. She states that she was seen at [facility] 2 days ago diagnosed with a urinary tract infections and states she did not fill her prescriptions. Patient admits to substance abuse she states she used methamphetamines 4 days ago. Patient arrives she has somewhat bizarre behavior she has frequent random movements, She becomes very angry when I ask her about substance abuse. And begins flailing her arms about stating "I answered that question earlier". On physical examination patient appears to be somewhat agitated. Head is atraumatic normocephalic. Eyes PERRLA EOMI fundi are unremarkable. Ears TMs arias intact bilaterally. Nose is clear. Throat is clear. Neck is supple. Lungs are clear. Heart regular rate and rhythm without murmur. Abdomen mild suprapubic tenderness positive bowel sounds negative masses negative rebound. Extremities full range of motion pulse equal symmetrical 2 over 4. Neuro cranial nerves II through XII are intact DTRs are symmetrical 2/ 4 [place] Coma Scale is 15. I did tell the patient that it was very unlikely that she would harm her baby patient has positive heart tones of 160 she states "my stomach hurts" Patient appears to be stable but angry at her mate for answering some of the questions with her. Especially stating that she did not fill her prescriptions from [facility]. Will go ahead and obtain CBC BMP amylase lipase urine drug screen., Salicylate , acetaminophen. Patient is not having any vaginal bleeding. Patient's labs are all normal. Vitals are normal. Patient feeling better after IV fluids. Will discharge patient. Once I told patient that her labs were normal that she appeared to be stable, and that I was planning on discharging her Patient demanded the nurses to remove all her IVs and pulse oximetry . apparently patient then threatened to kill herself because she was homeless. Unfortunately the patient became combative with staff. Was spitting on cyber security consultant. Patient was placed in 4 point restraints. Patient is calming down she is talking to the halfway house counselor. Patient was accepted to [facility] arrange transport. emergency assisted has been obtain from the commercial driver. upon arrival of medics patient was informed of transfer to [facility], she got up and got on the stretcher without problems. Will be transferred to [facility]> 06/07/18 02:06 06/07/18 02:11 06/07/18 05:05 06/07/18 05:28 06/07/18 06:16 06/07/18 06:17 06/07/18 07:19 - Departure Time of Disposition: 07:19 Departure Disposition: Transfer (Ismael) Clinical Impression: Suicidal ideation Accidental fall Qualifiers: Encounter type: initial encounter Qualified Code(s): W19.XXXA - Unspecified fall, initial encounter Contusion of abdominal wall Qualifiers: Encounter type: initial encounter Qualified Code(s): S30.1XXA - Contusion of abdominal wall, initial encounter Qualifiers: Weeks of gestation: 12 weeks Qualified Code(s): Z3A.12 - 12 weeks gestation of Condition: Fair Critical Care Time: No Referrals: PAZ MARIA [Primary Care Provider] -
[2018-06-07] MEDS ORDERED: Sodium Chloride 0.9% 1000 ML 1,000 ML ONE (01:00)
[2018-06-07] MEDS: Sodium Chloride 0.9% 1000 ML 1,000 ML IV STA (01:01)
[2018-06-07 01:21] LABS: Appearance SLIGHTLY CLOUDY (CLEAR); Bilirubin NEGATIVE (NEGATIVE); Blood NEGATIVE Ery/ul (0-5); Glucose NEGATIVE (NEGATIVE); Ketones NEGATIVE (NEGATIVE); Leukocyte Esterase NEGATIVE (NEGATIVE); Nitrite NEGATIVE (NEGATIVE); Protein,Urine Dip NEGATIVE (Negative); Urobilinogen 2 mg/dL (0-1)
[2018-06-07] MEDS: TYLENOL 325 MG PO ONE (01:24)
[2018-06-07] MEDS ORDERED: TYLENOL 325 MG ONE (01:24)
[2018-06-07 01:34] LABS: Amphetamine,Urine NEGATIVE (NEGATIVE); Barbiturate,Urine NEGATIVE (NEGATIVE); Benzodiazepine,Urine NEGATIVE (NEGATIVE); Cocaine,Urine NEGATIVE (NEGATIVE); Methadone,Urine NEGATIVE (NEGATIVE); Opiate,Urine NEGATIVE (NEGATIVE); PCP,Urine NEGATIVE (NEGATIVE); THC,Urine NEGATIVE (NEGATIVE)
[2018-06-07 01:34] LABS: BASOPHIL % 0.2 % (0.0-0.4); Basophil (Absolute #) 0.01 (0-0.4); Eosinophil % 4.3 % (0.00-5.0); Eosinophil (Absolute #) 0.28 (0-0.5); Granulocyte Absolute (ANC) 3.63 (1.4-6.9); Hematocrit 35.5 % (35-47); Hemoglobin 12.2 gm/dl (12.0-16.0); Lymphocyte (Absolute #) 1.93 (1.0-4.6); Lymphocytes % 29.8 % (24.0-44.0); Mean Cell Volume 97.3 fl (78-100); Mean Corpuscular Hemoglobin 33.4 pg (26-32); Mean Corpuscular Hgb Concent. 34.4 g/dl (32-36); Mean Platelet Volume 10.1 fl (6-9.5); Monocyte (Absolute #) 0.63 (0.0-1.3); Monocytes % 9.7 % (0.0-12.0); Platelet Count 299 K/mm3 (150-450); Red Blood Count 3.65 M/mm3 (4.1-5.4); Red Cell Distribution Width 12.1 % (11.5-14.0); White Blood Count 6.5 K/mm3 (4.0-10.5)
[2018-06-07 01:55] LABS: ALBUMIN 3.3 g/dL (3.5-5.0); ALKALINE PHOSPHATASE 33 U/L (38-126); AMYLASE 45 U/L (30-110); ANION GAP 10.3 MEQ/L (5-15); BLOOD UREA NITROGEN 7 mg/dL (7-17); CHLORIDE 107 mmol/L (98-107); Carbon Dioxide 24 mmol/L (22-30); Creatinine 1 0.47 mg/dL (0.52-1.04); Glucose 88 mg/dL (74-106); LIPASE 48 U/L (23-300); Potassium 3.6 mmol/L (3.5-5.1); SGOT/AST 52 U/L (14-36); SGPT/ALT 80 U/L (0-35); SODIUM 138 mmol/L (137-145); Total Protein 6.4 g/dL (6.3-8.2)
[2018-06-07 02:00] LABS: ACETAMINOPHEN < 10 ug/ml (10-30); ETHYL ALCOHOL < 10 mg/dL (0-10); SALICYLATE < 1.0 mg/dL (2-20)
[2018-06-07 07:06] VITALS: BP 114/67; PULSE 86
[2018-06-07 07:20] VITALS: O2SAT 99
== END 2018-06-07 07:18 | disposition short-term general hospital (02) ==
LOC: ED 23:43
DX: R45.851 Suicidal ideations (principal); O26.891 Other specified pregnancy related conditions, first trimester; Z3A.12 12 weeks gestation of pregnancy; S30.1XXA Contusion of abdominal wall, initial encounter; W01.0XXA Fall on same level from slipping, tripping and stumbling without subsequent striking against object, initial encounter; Y93.01 Activity, walking, marching and hiking; Y92.511 Restaurant or cafe as the place of occurrence of the external cause
CPT/HCPCS: 36000; 36415; 80053; 80307; 81001; 82150; 83690; 85025; 96360; 99285; G0481; A9270-GY; G0480

== ENCOUNTER 2019-09-03 16:55 | Emergency (ER) | payer OTHER ==
[2019-09-03 17:50] VITALS: BP 114/81; PULSE 93; O2SAT 98
[2019-09-03] MEDS ORDERED: Sodium Chloride 0.9% 1000 ML 1,000 ML IV STA (18:49)
[2019-09-03] MEDS ORDERED: TORAdol 30 mg Injection IV ONE (18:49)
[2019-09-03] MEDS ORDERED: Sodium Chloride 0.9% 1000 ML 1,000 ML ONE (19:38)
[2019-09-03] MEDS ORDERED: TORAdol 30 mg Injection ONE (19:38)
[2019-09-03 19:48] LABS: BASOPHIL % 0.3 % (0.0-0.4); Basophil (Absolute #) 0.02 (0-0.4); Eosinophil % 2.5 % (0.00-5.0); Hemoglobin 14.6 gm/dl (12.0-16.0); Lymphocyte (Absolute #) 2.23 (1.0-4.6); Mean Cell Volume 95.5 fl (78-100); Mean Corpuscular Hemoglobin 33.2 pg (26-32); Mean Corpuscular Hgb Concent. 34.8 g/dl (32-36); Mean Platelet Volume 10.9 fl (7.5-11.0); Monocyte (Absolute #) 0.52 (0.0-1.3); Monocytes % 6.5 % (0.0-12.0); Neutrophil % 62.7 % (36.0-66.0); Platelet Count 285 K/mm3 (150-450)
[2019-09-03 20:08] LABS: ALBUMIN 4.1 g/dL (3.5-5.0); ALKALINE PHOSPHATASE 58 U/L (38-126); ANION GAP 9.3 MEQ/L (5-15); BLOOD UREA NITROGEN 14 mg/dL (7-17); CHLORIDE 109 mmol/L (98-107); Calcium 9.4 mg/dL (8.4-10.2); Carbon Dioxide 26 mmol/L (22-30); Creatinine 1 0.56 mg/dL (0.52-1.04); Glucose 84 mg/dL (74-106); Potassium 4.2 mmol/L (3.5-5.1); SGOT/AST 90 U/L (14-36); SGPT/ALT 103 U/L (0-35); SODIUM 141 mmol/L (137-145); Total Protein 7.9 g/dL (6.3-8.2)
[2019-09-03 20:24] LABS: Appearance SLIGHTLY CLOUDY (CLEAR); Bilirubin NEGATIVE (NEGATIVE); Blood SMALL Ery/ul (0-5); Epithelial Cells RARE /HPF (FEW); Glucose NEGATIVE (NEGATIVE); Ketones NEGATIVE (NEGATIVE); Leukocyte Esterase NEGATIVE (NEGATIVE); Mucus SLIGHT /HPF (NEGATIVE); Nitrite NEGATIVE (NEGATIVE); Protein,Urine Dip NEGATIVE (Negative); Specific Gravity 1.027 (1.005-1.025); Urobilinogen 2 mg/dL (0-1); WBC 0-2 /HPF (0-5)
[2019-09-03 20:45] LABS: ABO TYPING A; Antibody Screen NEGATIVE (NEGATIVE); RH TYPING POSITIVE
--- NOTE | 2019-09-04 04:12 | ERPHSYRPT ---
- History of Present Illness Time Seen by Provider: 09/03/19 17:55 Source: patient Exam Limitations: no limitations Patient Subjective Stated Complaint: Pt stated that she had a baby in December and every month on her period she bleeds heavily and for long periods of time, has endometriosis and says that the pain is too much for her Triage Nursing Assessment: Pt brought in by her boyfriend, obey stern, rates pain 8/10 but pt is laughing and doesn't appear to be in any distress, pt started period 2 days ago and says that she is having pain, c/o a headache that began this morning, pt appears as if she is on something but she states that she has been clean for 6 months Physician History: Patient is a 33-year-old female presents to our ED with complaints of heavy menstrual cycles and vaginal bleeding. Patient has a history of heavy menstrual cycles but states that her vaginal bleeding has been worse over the past several days. Patient states she has been going through 1 pad every 2 or 3 hours. Patient states the pads are "soaked". She is experiencing intermittent pelvic pain. Patient has a history of endometriosis. Symptoms are constant. Symptoms are moderate intensity. No specific worsening improving factors. Patient states she feels somewhat more short of breath than normal. No trauma. No fevers. No nausea or vomiting. No diarrhea. No rash. Patient voices no other complaints at this time. Timing/Duration: day(s) Severity: moderate Modifying Factors: Improves With: other Associated Symptoms: No nausea, No vomiting, No weakness Allergies/Adverse Reactions: amoxicillin trihydrate [From Augmentin] Allergy (Intermediate, Verified 17:50) Vomiting cefuroxime Allergy (Intermediate, Verified 09/03/19 17:50) Vomiting Latex, Natural Rubber Allergy (Intermediate, Verified 09/03/19 17:50) Hives penicillin G Allergy (Intermediate, Verified 09/03/19 17:50) CHILDHOOD Penicillins Allergy (Intermediate, Verified 09/03/19 17:50) Rash potassium clavulanate [From Augmentin] Allergy (Intermediate, Verified 09/03/19 17:50) amoxicillin Allergy (Mild, Verified 09/03/19 17:50) Rash clindamycin Allergy (Mild, Verified 09/03/19 17:50) Vomiting contrast dye Allergy (Severe, Uncoded 09/03/19 17:50) Shortness of Breath vomiting Home Medications: No Reportable Medications [No Reported Medications] 09/03/19 [History] Hx Tetanus, Diphtheria Vaccination/Date Given: Yes Hx Influenza Vaccination/Date Given: Yes Hx Pneumococcal Vaccination/Date Given: No - Review of Systems Constitutional: No Fever, No Chills Eyes: No Symptoms Ears, Nose, & Throat: No Symptoms Respiratory: No Cough, No Dyspnea Cardiac: No Chest Pain, No Edema, No Syncope Abdominal/Gastrointestinal: No Abdominal Pain, No Nausea, No Vomiting, No Diarrhea Genitourinary Symptoms: No Symptoms, No Dysuria Musculoskeletal: No Symptoms, No Back Pain, No Neck Pain Skin: No Symptoms, No Rash Neurological: No Symptoms, No Dizziness, No Focal Weakness, No Sensory Changes Psychological: No Symptoms Endocrine: No Symptoms Hematologic/Lymphatic: No Symptoms All Other Systems: Reviewed and Negative - Past Medical History Pertinent Past Medical History: Yes Neurological History: No Pertinent History ENT History: No Pertinent History Cardiac History: Myocardial Infarction (ID) Respiratory History: Asthma Endocrine Medical History: Diabetes Type II Musculoskeletal History: No Pertinent History GI Medical History: No Pertinent History History: No Pertinent History Psycho-Social History: Anxiety, Bipolar, Depression, Other Female Reproductive Disorders: Endometriosis Other Medical History: elevated liver enzymes,. pt states agoraphobia and ptsd - Past Surgical History Past Surgical History: Yes Neuro Surgical History: No Pertinent History Cardiac: Cardiac Catheterization Respiratory: No Pertinent History Gastrointestinal: No Pertinent History Genitourinary: No Pertinent History Musculoskeletal: Orthopedic Surgery Female Surgical History: Dilation & Curettage, Section Other Surgical History: BACK surgery-implanted rods. d and c - Social History Smoking Status: Former smoker How long have you smoked: 27 years Exposure to second hand smoke: Yes Drug Use: none Patient Lives Alone: No Significant Family History: no pertinent family hx - Female History Hx Last Menstrual Period: 09/01/2019 Hx Now: No - Nursing Vital Signs Nursing Vital Signs: Initial Vital Signs Temperature 97.9 F 09/03/19 17:38 Pulse Rate 93 H 09/03/19 17:38 Blood Pressure 114/81 09/03/19 17:38 O2 Sat by Pulse Oximetry 98 09/03/19 17:38 Pain Scale Pain Intensity 6 - Physical Exam General Appearance: no apparent distress, alert, other (Patient sitting up in bed. She is conversant well-appearing and in no acute distress.) Eye Exam: PERRL/EOMI, eyes nml inspection Ears, Nose, Throat Exam: normal ENT inspection, TMs normal, pharynx normal, moist mucous membranes Neck Exam: normal inspection, non-tender, supple, full range of motion Respiratory Exam: normal breath sounds, lungs clear, No respiratory distress Cardiovascular Exam: regular rate/rhythm, normal heart sounds, normal peripheral pulses Gastrointestinal/Abdomen Exam: soft, normal bowel sounds, No tenderness, No mass Back Exam: normal inspection, normal range of motion, No CVA tenderness, No vertebral tenderness Extremity Exam: normal inspection, normal range of motion, pelvis stable Neurologic Exam: alert, oriented x 3, cooperative, normal mood/affect, nml cerebellar function, nml station & gait, sensation nml, No motor deficits Skin Exam: normal color, warm, dry, No rash Lymphatic Exam: No adenopathy SpO2 Interpretation: normal SpO2: 98 O2 Delivery: Room Air - Course Nursing assessment & vital signs reviewed: Yes - Radiology Ultrasound Exam Pelvis Ultrasound: tele radiology report (Pelvic fluid visualized. No other abnormalities. Patient started her period 3 days ago.) Ordered Tests: Active Orders 24 hr Category Date Time Status IV Insertion STAT Care 09/03/19 18:49 Active PELVIS TRANS VAGINAL [US] Stat Exams 09/03/19 18:50 Taken CBC W DIFF Stat Lab 09/03/19 18:49 Completed CMP Stat Lab 09/03/19 18:49 Completed HCG,QUALITATIVE URINE Stat Lab 09/03/19 19:16 Completed UA W/RFX UR CULTURE Stat Lab 09/03/19 19:16 Completed Medication Summary Discontinued Medications Generic Name Dose Route Start Last Admin Trade Name Jason PRN Reason Stop Dose Admin Sodium Chloride 1,000 mls @ 999 mls/hr 09/03/19 18:49 09/03/19 19:40 Sodium Chloride 0.9% 1000 Ml IV 09/03/19 19:49 999 mls/hr .Q1H1M STA Administration Sodium Chloride Confirm 09/03/19 19:38 Sodium Chloride 0.9% 1000 Ml Administered 09/03/19 19:39 Dose 1,000 mls @ ud .ROUTE .STK-MED ONE Ketorolac Tromethamine 30 mg 09/03/19 18:49 09/03/19 19:41 Toradol 30 Mg Injection IV 09/03/19 18:50 30 mg STAT ONE Administration Ketorolac Tromethamine Confirm 09/03/19 19:38 Toradol 30 Mg Injection Administered 09/03/19 19:39 Dose 30 mg .ROUTE .STK-MED ONE Lab/Rad Data: Laboratory Result Diagrams 09/03/19 18:49 09/03/19 18:49 Laboratory Results 09/03/19 09/03/19 09/03/19 Range/Units 19:16 19:16 19:15 WBC (4.0-10.5) K/mm3 RBC (4.1-5.4) M/mm3 Hgb (12.0-16.0) gm/dl Hct (35-47) % MCV (78-100) fl MCH (26-32) pg MCHC (32-36) g/dl RDW (11.5-14.0) % Plt Count (150-450) K/mm3 MPV (7.5-11.0) fl Gran % (36.0-66.0) % Eos # (Auto) (0-0.5) Absolute Lymphs (auto) (1.0-4.6) Absolute Monos (auto) (0.0-1.3) Lymphocytes % (24.0-44.0) % Monocytes % (0.0-12.0) % Eosinophils % (0.00-5.0) % Basophils % (0.0-0.4) % Absolute Granulocytes (1.4-6.9) Basophils # (0-0.4) Sodium (137-145) mmol/L Potassium (3.5-5.1) mmol/L Chloride (98-107) mmol/L Carbon Dioxide (22-30) mmol/L Anion Gap (5-15) MEQ/L BUN (7-17) mg/dL Creatinine (0.52-1.04) mg/dL Estimated GFR ML/MIN Glucose (74-106) mg/dL Calcium (8.4-10.2) mg/dL Total Bilirubin (0.2-1.3) mg/dL AST (14-36) U/L ALT (0-35) U/L Alkaline Phosphatase (38-126) U/L Serum Total Protein (6.3-8.2) g/dL Albumin (3.5-5.0) g/dL Urine Color YELLOW (YELLOW) Urine Appearance SLIGHTLY CLOUDY (CLEAR) Urine pH 5.0 (5-6) Ur Specific [place] 1.027 (1.005-1.025) Urine Protein NEGATIVE (Negative) Urine Ketones NEGATIVE (NEGATIVE) Urine Blood SMALL (0-5) Blu/ul Urine Nitrite NEGATIVE (NEGATIVE) Urine Bilirubin NEGATIVE (NEGATIVE) Urine Urobilinogen 2 (0-1) mg/dL Ur Leukocyte Esterase NEGATIVE (NEGATIVE) Urine WBC (Auto) 0-2 (0-5) /HPF Urine RBC (Auto) NONE (0-2) /HPF U Epithel Cells (Auto) RARE (FEW) /HPF Urine Bacteria (Auto) NONE (NEGATIVE) /HPF Urine Mucus (Auto) SLIGHT (NEGATIVE) /HPF Urine Culture Reflexed NO (NO) Urine Glucose NEGATIVE (NEGATIVE) mg/dL Urine HCG, Qual NEGATIVE (Negative) ABO Group A Rh Factor POSITIVE Antibody Screen NEGATIVE (NEGATIVE) 09/03/19 09/03/19 Range/Units 18:49 18:49 WBC 8.0 (4.0-10.5) K/mm3 RBC 4.40 (4.1-5.4) M/mm3 Hgb 14.6 (12.0-16.0) gm/dl Hct 42.0 (35-47) % MCV 95.5 (78-100) fl MCH 33.2 H (26-32) pg MCHC 34.8 (32-36) g/dl RDW 12.0 (11.5-14.0) % Plt Count 285 (150-450) K/mm3 MPV 10.9 (7.5-11.0) fl Gran % 62.7 (36.0-66.0) % Eos # (Auto) 0.20 (0-0.5) Absolute Lymphs (auto) 2.23 (1.0-4.6) Absolute Monos (auto) 0.52 (0.0-1.3) Lymphocytes % 28.0 (24.0-44.0) % Monocytes % 6.5 (0.0-12.0) % Eosinophils % 2.5 (0.00-5.0) % Basophils % 0.3 (0.0-0.4) % Absolute Granulocytes 5.00 (1.4-6.9) Basophils # 0.02 (0-0.4) Sodium 141 (137-145) mmol/L Potassium 4.2 (3.5-5.1) mmol/L Chloride 109 H (98-107) mmol/L Carbon Dioxide 26 (22-30) mmol/L Anion Gap 9.3 (5-15) MEQ/L BUN 14 (7-17) mg/dL Creatinine 0.56 (0.52-1.04) mg/dL Estimated GFR > 60.0 ML/MIN Glucose 84 (74-106) mg/dL Calcium 9.4 (8.4-10.2) mg/dL Total Bilirubin 0.60 (0.2-1.3) mg/dL AST 90 H (14-36) U/L ALT 103 H (0-35) U/L Alkaline Phosphatase 58 (38-126) U/L Serum Total Protein 7.9 (6.3-8.2) g/dL Albumin 4.1 (3.5-5.0) g/dL Urine Color (YELLOW) Urine Appearance (CLEAR) Urine pH (5-6) Ur Specific [place] (1.005-1.025) Urine Protein (Negative) Urine Ketones (NEGATIVE) Urine Blood (0-5) Blu/ul Urine Nitrite (NEGATIVE) Urine Bilirubin (NEGATIVE) Urine Urobilinogen (0-1) mg/dL Ur Leukocyte Esterase (NEGATIVE) Urine WBC (Auto) (0-5) /HPF Urine RBC (Auto) (0-2) /HPF U Epithel Cells (Auto) (FEW) /HPF Urine Bacteria (Auto) (NEGATIVE) /HPF Urine Mucus (Auto) (NEGATIVE) /HPF Urine Culture Reflexed (NO) Urine Glucose (NEGATIVE) mg/dL Urine HCG, Qual (Negative) ABO Group Rh Factor Antibody Screen (NEGATIVE) - Progress Progress: unchanged Progress Note: 09/04/19 04:15 Patient absconded prior to completing work-up. Patient stated she could not stay because her had to leave for work. Patient left the ED before physician could speak to her. - Departure Departure Disposition: AMA Clinical Impression: Vaginal bleeding, Menorrhagia Condition: Stable Critical Care Time: No Referrals: PAZ MARIA [Primary Care Provider] -
--- NOTE | 2019-09-04 08:55 | XRAY ---
Indication: Heavy bleeding. Two-dimensional transvaginal pelvic sonogram performed. Comparison: None Uterus anteverted measuring 7.8 x 5.3 x 5.7 cm. No focal solid/cystic uterine mass. Endometrial stripe measures 6.8 mm. No endometrial cavity mass or fluid collection. Right ovary measures 2.5 x 1.5 x 1.4 cm and the left measures 2.2 x 3.0 x 1.4 cm. Normal follicular cysts and perfusion bilaterally. Tiny cul-de-sac fluid presumed physiologic from rupture/leaking cyst. Impression: Tiny cul-de-sac fluid presumed physiologic. Remaining transvaginal pelvic sonogram is negative. Comment: Preliminary report was given.
== END 2019-09-03 20:15 | disposition left against medical advice (07) ==
LOC: ED 16:55
DX: N93.9 Abnormal uterine and vaginal bleeding, unspecified (principal); N95.0 Postmenopausal bleeding
CPT/HCPCS: 36415; 76830; 80053; 81001; 84703; 85025; 86850; 86900; 86901; 96374; 99284; J1885

== ENCOUNTER 2020-12-27 03:45 | Emergency (ER) | payer OTHER ==
[2020-12-27] MEDS ORDERED: TYLENOL 325 MG PO ONE (04:11)
--- NOTE | 2020-12-27 04:16 | ERPHSYRPT ---
- History of Present Illness Time Seen by Provider: 12/27/20 03:45 Source: patient Exam Limitations: no limitations Patient Subjective Stated Complaint: pt states she fell from standing while walking inheels. states she fell onto her rt hip. has been having pain since. Triage Nursing Assessment: pt alert and oriented, answers questions approp. pt ambulatory with limping gait noted. respirations nonlabored with lungs cta. no bruising ntoed to rt hip. pt reporst tenderness with light palpation. pedal pulse and cap refill wnl Physician History: Patient is a 35-year-old female presents to our emergency department for e valuation of right hip pain. Patient states she was ambulating in high heels when she lost her footing and fell towards her right side. Patient landed on her right hip. Injury occurred just prior to arrival. Pain described as an ache that is localized. Pain worse with weightbearing and palpation pain improved with rest. No other injuries reported. Symptoms are mild to moderate in intensity. Method of Injury: fell Occurred: just prior to arrival Quality: constant, aching Severity of Pain-Max: moderate Severity of Pain-Current: mild Lower Extremities Pain: hip: right Modifying Factors: Improves With: movement Associated Symptoms: none Allergies/Adverse Reactions: amoxicillin trihydrate [From Augmentin] Allergy (Intermediate, Verified 12/27/20 04:06) Vomiting cefuroxime Allergy (Intermediate, Verified 12/27/20 04:06) Vomiting Latex, Natural Rubber Allergy (Intermediate, Verified 12/27/20 04:06) Hives penicillin G Allergy (Intermediate, Verified 12/27/20 04:06) CHILDHOOD Penicillins Allergy (Intermediate, Verified 12/27/20 04:06) Rash potassium clavulanate [From Augmentin] Allergy (Intermediate, Verified 12/27/20 04:06) amoxicillin Allergy (Mild, Verified 12/27/20 04:06) Rash clindamycin Allergy (Mild, Verified 12/27/20 04:06) Vomiting contrast dye Allergy (Severe, Uncoded 12/27/20 04:06) Shortness of Breath vomiting Home Medications: Prazosin HCl 1 mg PO DAILY 12/27/20 [History] Hx Tetanus, Diphtheria Vaccination/Date Given: Yes (october) Hx Influenza Vaccination/Date Given: No Hx Pneumococcal Vaccination/Date Given: No Immunizations Up to Date: Yes Travel Risk - International Travel Have you traveled outside of the country in past 3 weeks: No - Coronavirus Screening Are you exhibiting any of the following symptoms?: No Close contact with a COVID-19 positive Pt in past 14-21 Days: No - Vaccine Status Have you recieved a Covid-19 vaccination: No - Review of Systems Constitutional: No Symptoms, No Fever, No Chills Eyes: No Symptoms Ears, Nose, & Throat: No Symptoms Respiratory: No Symptoms, No Cough, No Dyspnea Cardiac: No Symptoms, No Chest Pain, No Edema, No Syncope Abdominal/Gastrointestinal: No Symptoms, No Abdominal Pain, No Nausea, No Vomiting, No Diarrhea Genitourinary Symptoms: No Symptoms, No Dysuria Musculoskeletal: No Symptoms, No Back Pain, No Neck Pain Skin: No Symptoms, No Rash Neurological: No Symptoms, No Dizziness, No Focal Weakness, No Sensory Changes Psychological: No Symptoms Endocrine: No Symptoms Hematologic/Lymphatic: No Symptoms Immunological/Allergic: No Symptoms All Other Systems: Reviewed and Negative - Past Medical History Pertinent Past Medical History: Yes Neurological History: No Pertinent History ENT History: No Pertinent History Cardiac History: Myocardial Infarction (ND) Respiratory History: Asthma Endocrine Medical History: Diabetes Type II Musculoskeletal History: No Pertinent History GI Medical History: No Pertinent History History: No Pertinent History Psycho-Social History: Anxiety, Bipolar, Depression, Other Female Reproductive Disorders: Endometriosis Other Medical History: elevated liver enzymes,. pt states agoraphobia and ptsd. hep c - Past Surgical History Past Surgical History: Yes Neuro Surgical History: No Pertinent History Cardiac: Cardiac Catheterization Respiratory: No Pertinent History Gastrointestinal: No Pertinent History Genitourinary: No Pertinent History Musculoskeletal: Orthopedic Surgery Female Surgical History: Dilation & Curettage, Section Other Surgical History: BACK surgery-implanted rods. d and c - Social History Smoking Status: Former smoker How long have you smoked: 27 years Exposure to second hand smoke: Yes Drug Use: marijuana, methamphetamines Patient Lives Alone: No Significant Family History: no pertinent family hx - Female History Hx Last Menstrual Period: 1 mos Hx Now: No (unsure) - Nursing Vital Signs Nursing Vital Signs: Initial Vital Signs Temperature 97.3 F 12/27/20 03:51 Pulse Rate 85 12/27/20 03:51 Respiratory Rate 18 12/27/20 03:51 Blood Pressure 116/79 12/27/20 03:51 O2 Sat by Pulse Oximetry 96 12/27/20 03:51 Pain Scale Pain Intensity 6 - Physical Exam General Appearance: no apparent distress, alert Eyes, Ears, Nose, Throat Exam: moist mucous membranes Neck Exam: non-tender, supple Cardiovascular/Respiratory Exam: chest non-tender, normal breath sounds, regular rate/rhythm, no respiratory distress Gastrointestinal/Abdominal Exam: non-tender, guarding Back Exam: normal inspection, No vertebral tenderness Neuro/Tendon Exam: normal sensation, normal motor functions Mental Status Exam: alert, oriented x 3, cooperative Skin Exam: normal color, warm, dry SpO2: 96 - Course Nursing assessment & vital signs reviewed: Yes - Radiology Exams Hip X-ray Interpretation: Reviewed by me (No fracture or dislocation. No soft tissue abnormalities) Ordered Tests: Active Orders 24 hr Category Date Time Status HIP UNI (2V) INCL PEL IF DONE Stat Exams 12/27/20 04:10 Taken HCG,QUALITATIVE URINE Stat Lab 12/27/20 04:20 Completed Medication Summary Discontinued Medications Generic Name Dose Route Start Last Admin Trade Name Freq PRN Reason Stop Dose Admin Acetaminophen 975 mg 12/27/20 04:11 12/27/20 04:29 Tylenol 325 Mg PO 12/27/20 04:12 975 mg STAT ONE Administration Acetaminophen Confirm 12/27/20 04:28 Tylenol 325 Mg Administered 12/27/20 04:29 Dose 975 mg .ROUTE .STK-MED ONE Lab/Rad Data: Laboratory Results 12/27/20 Range/Units 04:20 Urine HCG, Qual NEGATIVE (Negative) - Progress Progress: improved Progress Note: Patient reassessed. She feels well. Patient ambulated to the room with a mild antalgic gait. Patient declined crutches. X-ray negative for fracture dislocation. negative. Patient states is ready for discharge. Will discharge at this time. Patient voices no other complaints concerns. Patient agrees to follow-up with primary care doctor within 48 hours for evaluation. 12/27/20 05:06 Counseled pt/family regarding: lab results, diagnosis, need for follow-up, rad results - Departure Departure Disposition: Home Clinical Impression: Fall, Contusion of hip, right Condition: Stable Critical Care Time: No Referrals: PAZ SIMMONS [Primary Care Provider] - Additional Instructions: Discharge/Care Plan RAGHAVENDRA BROWN MEET was seen on 12/27/20 in the Emergency Room. The patient was counseled regarding Diagnosis,Lab results, Imaging studies, need for follow up and when to return to the Emergency Room. Prescriptions given: Discharge Note I have spoken with the patient and/or caregivers. I have explained the patient's condition, diagnosis and treatment plan based on the information available to me at this time. I have answered the patient's and/or caregiver's questions and addressed any concerns. The patient and/or caregivers have as good understanding of the patient's diagnosis, condition and treatment plan as can be expected at this point. The vital signs have been stable. The patient's condition is stable and appropriate for discharge from the emergency department. The patient will pursue further outpatient evaluation with the primary care physician or other designated or consulting physician as outlined in the discharge instructions. The patient and/or caregivers are agreeable to this plan of care and follow-up instructions have been explained in detail. The patient and/or caregivers have received these instruction. The patient/and or caregivers are aware that any significant change in condition or worsening of symptoms should prompt an immediate return to this or the closest emergency department or call 911.
[2020-12-27] MEDS ORDERED: TYLENOL 325 MG ONE (04:28)
[2020-12-27 05:14] VITALS: BP 128/72; PULSE 81; O2SAT 100
--- NOTE | 2020-12-27 22:49 | XRAY ---
Exam: Two-view right hip series from 12/27/2020. Comparison: None. Indication: Patient fell a couple hours ago; complains of lateral right hip pain; rule out fracture. Findings: AP and frog-leg lateral views of the right hip were obtained. I see no acute fracture or dislocation. The right pubic ring is intact. The contour of the right femoral head is normal. The right hip joint space is well-preserved and displays smooth articular margins. A tiny nonspecific calcification is seen adjacent to the superior lateral edge of the right acetabulum. I don't believe this is significant. No other focal bone lesion is seen. Incidentally, a moderate amount of stool is seen within the rectal vault. Impression: 1. No acute right hip fracture or dislocation is seen. 2. A moderate amount of stool is seen within the rectal vault, the latter measuring 9.3 cm in width. Consider fecal impaction.
== END 2020-12-27 05:18 | disposition home or self-care (01) ==
LOC: ED 03:45
DX: S70.01XA Contusion of right hip, initial encounter (principal); W18.39XA Other fall on same level, initial encounter; Z79.899 Other long term (current) drug therapy; E11.9 Type 2 diabetes mellitus without complications; I25.2 Old myocardial infarction
CPT/HCPCS: 73502; 84703; 99284; A9270-GY